=== PATIENT | female | born 1960 | race Caucasian/White ===

== ENCOUNTER → 2017-09-30 10:27 | Outpatient (CLI) | payer OTHER, SELFPAY ==
--- NOTE | 2017-09-30 | DI.ECHO.S_ITS ---
[facility]---------+ [facility] +---------+ : : [address] : : : : [id number] : : : : Phone: [phone]+ Echocardiogram Report + + :Name: JENNI ROSALES Study Date: 09/30/2017 Height: 64 in : :[facility] Weight: 220 lb : : Gender: Female BSA: 2.0 m2 : :: 1960 Age: 57 yrs BP: 142/80 mmHg: :Reason For Study: SOB : :Ordering Physician: Marshal : :Paliwal Performed By: Verna Soto : + + Interpretation Summary 1) Moderate concentric left ventricular hypertrophy with normal size, normal wall motion, and normal systolic function (EF 60-65%). 2) Normal right ventricular size and function. 3) Assessment of diastolic parameters suggests a pseudonormalization pattern, consistent with elevated filling pressures. 4) The right ventricular systolic pressure is estimated at 26 mmHg assuming a right atrial pressure of 3 mm Hg. 5) No significant valvular abnormalities. 6) The ascending aorta is mildly enlarged at 3.9cm. 7) Compared to the Echo done 09/10/2015, no significant change. Procedure: A two-dimensional transthoracic echocardiogram with color flow and Doppler was performed. The study quality was technically adequate. Comparison is made with the echocardiogram of 09/10/2015. The patient was in sinus bradycardia with heart rates between 52-62 bpm during the exam. Left Ventricle: The left ventricle is normal in size. There is moderate concentric left ventricular hypertrophy. There is no ventricular septal defect visualized. The ejection fraction is estimated to be 60-65%. There are no focal wall motion abnormalities. Assessment of diastolic parameters suggests a pseudonormalization pattern, consistent with elevated filling pressures. Right Ventricle: The right ventricle is normal in size and function. Atria: The left atrium is mildly dilated. Right atrial size is normal. There is no Doppler evidence for an interatrial shunt. Mitral Valve: The mitral valve is normal in structure and function. There is trace mitral regurgitation. Aortic Valve: The aortic valve is not well visualized. The aortic valve opens well. There is trace aortic regurgitation. Tricuspid Valve: The tricuspid valve is normal in structure and function. There is trace tricuspid regurgitation. The right ventricular systolic pressure is estimated at 26 mmHg assuming a right atrial pressure of 3 mm Hg. Pulmonic Valve: The pulmonic valve is not well visualized. There is a trace or physiologic amount of pulmonic regurgitation. Great Vessels: The aortic root is mildly dilated. The ascending aorta is mildly enlarged. The aortic arch is normal in size. The IVC is of normal diameter and collapses greater than 50% with a sniff. This suggests a low right atrial pressure of 3 mm Hg. Pericardium/ Pleura There is no pericardial effusion. MMode/2D Measurements & Calculations LVIDd: 4.4 cm LVOT diam: 2.0 cm LVIDs: 2.7 cm Ao root diam: 4.0 cm FS: 37.6 % Aortic Jxn: 3.1 cm EPSS: 0.30 cm asc Aorta Diam: 3.9 cm IVSd: 1.5 cm Ao Arch Diam (Prox Trans): 2.4 cm LVPWd: 1.3 cm LV davey. diameter/BSA (cm/m^2): 2.1 LV sys. diameter/BSA (cm/m^2): 1.3 LA A2 area: 24.4 cm2 RA long axis: 4.7 cm LA A4 area: 20.6 cm2 RA area: 14.4 cm2 LA length (vol): 5.2 cm RA vol: 37.9 ml LA vol: 81.0 ml RA : 18.6 ml/m2 LA vol index: 39.8 ml/m2 IVC diam: 1.5 cm RVD1 (basal): 3.4 cm TAPSE: 2.6 cm Doppler Measurements & Calculations Ao V2 max: 139.6 cm/sec LVOT Max Hubert: 113.6 cm/sec Ao V2 mean: 87.5 cm/sec LV V1 max P.2 mmHg Ao max P.8 mmHg LV V1 VTI: 27.1 cm Ao mean P.6 mmHg JOSE(I,D): 2.5 cm2 Ao V2 VTI: 32.3 cm JOSE(V,D): 2.4 cm2 sev ratio: 0.84 JOSE indexed to BSA (cm^2/m^2): 1.2 MV E max hubert: 91.8 cm/sec TR max hubert: 241.7 cm/sec MV A max hubert: 95.3 cm/sec TR max P.4 mmHg MV E/A: 0.96 PA V2 max: 77.7 cm/sec Med Peak E' Hubert: 6.4 cm/sec PA V2 mean: 57.9 cm/sec E/E' med: 14.3 PA mean P.4 mmHg Lat Peak E' Hubert: 7.6 cm/sec PA Accel Time: 0.18 sec E/E' lat: 12.1 E/e' average: 13.2 MV dec time: 0.22 sec MV P1/2t: 65.7 msec MV /2t max hubert: 91.9 cm/sec MVA(P1/2t): 3.4 cm2 Reading Physician:09:51 AM
[2017-09-30 13:39] LABS: BUN Creatinine Ratio 19.1 (6-22); Blood Urea Nitrogen 21 mg/dL (7-17); Calcium 9.4 mg/dL (8.4-10.2); Carbon Dioxide 26 mmol/L (22-32); Chloride 105 mmol/L (98-107); Estimated Glomerular Filt Rate 50.8 mL/min (>60); Glucose 82 mg/dL (70-100); HEMOLYSIS < 15 (0-50); Sodium 142 mmol/L (137-145)
== END ==
PROVIDERS: Family Provider Family Medicine; PCP Family Medicine; Visit Provider Internal Medicine Cardiovascular Disease
DX: R06.02 Shortness of breath (principal); I10 Essential (primary) hypertension; R60.9 Edema, unspecified
CPT/HCPCS: 36415; 80048; 93306

== ENCOUNTER → 2017-10-26 09:42 | Outpatient (CLI) | payer OTHER, SELFPAY ==
[2017-10-26 10:27] LABS: Add Manual Diff / Slide Review NO; Basophils Percent Auto 0.7 % (0-2); Eosinophils Percent Auto 3.5 % (2-4); Hematocrit 43.8 % (36-46); Hemoglobin 14.6 g/dL (12.0-16.0); Lymphocytes Percent Auto 21.7 % (25-40); Mean Corpuscular HGB Conc 33.2 % (30-36); Mean Corpuscular Hemoglobin 30.6 PG (26-34); Monocytes Percent Auto 7.9 % (3-14); Neutrophils Absolute Auto 6700 /uL (3000-5900); Neutrophils Percent Auto 66.2 % (50-75); Platelet Count 243 X10^3/uL (150-400); Red Blood Cell Count 4.76 X10^6/uL (4.0-5.2); Red Cell Distribution Width 15.6 % (11.6-14.8); White Blood Cell Count 10.2 X10^3/uL (4.5-11.0)
[2017-10-26 10:46] LABS: Hemoglobin A1C% w Est Avg Glu 5.6 % (4.0-6.0)
[2017-10-26 11:03] LABS: Creatinine Urine Random 191.3 mg/dL
[2017-10-26 11:05] LABS: Alanine Aminotransferase 32 IU/L (9-52); Albumin 4.4 g/dL (3.5-5.0); Albumin Globulin Ratio 1.3 (1.0-2.8); Alkaline Phosphatase 70 U/L (38-126); Aspartate Aminotransferase 27 IU/L (14-36); BUN Creatinine Ratio 19.4 (6-22); Bilirubin Total 0.3 mg/dL (0.2-1.3); Blood Urea Nitrogen 33 mg/dL (7-17); Calcium 9.7 mg/dL (8.4-10.2); Carbon Dioxide 29 mmol/L (22-32); Chloride 104 mmol/L (98-107); Cholesterol 157 mg/dL (140-199); Estimated Glomerular Filt Rate 30.8 mL/min (>60); Globulin 3.4 g/dL (1.7-4.1); Glucose 98 mg/dL (70-100); HDL Cholesterol 33 mg/dL (40-60); HEMOLYSIS < 15 (0-50); LDL Cholesterol Calculated 79 mg/dL (<100); Potassium 4.4 mmol/L (3.4-5.1); Sodium 145 mmol/L (137-145); Total Protein 7.8 g/dL (6.3-8.2); Triglycerides 226 mg/dL (35-150)
[2017-10-26 11:08] LABS: Microalbumi Creatinin Ratio Ur 5.7 ug/mg CR (<30); Microalbumin Urine Random 1.1 mg/dL (0-1.6)
[2017-10-26 11:33] LABS: TSH w/ Reflex to FT4 2.71 uIU/mL (0.47-4.68)
== END ==
PROVIDERS: Family Provider Family Medicine; PCP Family Medicine; Visit Provider Family Medicine
DX: I10 Essential (primary) hypertension (principal); E78.2 Mixed hyperlipidemia; E11.9 Type 2 diabetes mellitus without complications; Z79.4 Long term (current) use of insulin
CPT/HCPCS: 36415; 80053; 80061; 82043; 82570; 83036; 84443; 85025

== ENCOUNTER → 2017-11-26 12:29 | Outpatient (CLI) | payer OTHER, SELFPAY ==
[2017-11-26 14:09] LABS: BUN Creatinine Ratio 20.8 (6-22); Blood Urea Nitrogen 25 mg/dL (7-17); Calcium 9.6 mg/dL (8.4-10.2); Carbon Dioxide 30 mmol/L (22-32); Chloride 102 mmol/L (98-107); Glucose 113 mg/dL (70-100); HEMOLYSIS < 15 (0-50); Potassium 3.7 mmol/L (3.4-5.1); Sodium 142 mmol/L (137-145)
== END ==
PROVIDERS: Family Provider Family Medicine; PCP Family Medicine; Visit Provider Internal Medicine Cardiovascular Disease
DX: N28.9 Disorder of kidney and ureter, unspecified (principal)
CPT/HCPCS: 36415; 80048

== ENCOUNTER → 2018-02-14 11:16 | Outpatient (CLI) | payer OTHER, SELFPAY | PROVIDERS: Family Provider Family Medicine; PCP Family Medicine; Visit Provider Family Medicine | DX: E11.9 Type 2 diabetes mellitus without complications (principal); Z79.4 Long term (current) use of insulin; Z87.448 Personal history of other diseases of urinary system | CPT/HCPCS: 36415; 82565 ==

== ENCOUNTER → 2018-02-15 09:58 | Outpatient (CLI) | payer OTHER, SELFPAY ==
--- NOTE | 2018-02-15 09:59 | DI.MRI.S_ITS ---
PROCEDURE: MR HEAD/BRAIN WO/W CON INDICATIONS: slurring of speech TECHNIQUE: Noncontrast axial T1 spin echo, axial T2 fast spin echo, sagittal and axial FLAIR, coronal T2 fast spin echo, axial gradient echo, axial diffusion and ADC through the brain. After the administration of contrast, axial and coronal T1 spin echo with fat saturation through the brain. COMPARISON: [facility], CT, HEAD WITHOUT CONTRAST, 11/29/2008, 19:04. [facility], MR, STROKE PROTOCOL A, 12/25/2008, 19:47. FINDINGS: Image quality: Excellent. CSF spaces: Basal cisterns are patent. No extra-axial fluid collections. Ventricles are normal in size and shape. Brain: No midline shift. No intracranial bleeds or masses. No abnormal intracranial enhancement. There is cerebral volume loss for age. There is periventricular and deep white matter T2 hyperintense foci seen, which have progressed compared to 2008. The brainstem appears normal. Diffusion-weighted images demonstrate no acute ischemic insults. No chronic ischemic insults. Normal intravascular flow voids are present. Skull and face: Calvarial marrow is normal in signal. Orbits appear normal. Sinuses: Sinuses and mastoids appear clear. IMPRESSION: No findings of acute or subacute infarction can be seen. White matter lesions are seen, which are attributed to chronic small vessel ischemic change in a patient of this age. The burden of white matter abnormality is more prominent than would normally be expected in a patient of this age. Dictated by: Joel Lanza M.D. on 02/15/2018 at 10:24 Approved by: Joel Lanza M.D. on 02/15/2018 at 10:27
== END ==
PROVIDERS: Family Provider Family Medicine; PCP Family Medicine; Visit Provider Family Medicine
DX: R47.81 Slurred speech (principal)
CPT/HCPCS: 70553

== ENCOUNTER 2018-09-09 16:09 | Emergency (ER) | payer MEDICARE, OTHER, SELFPAY ==
[2018-09-09 16:16] VITALS: BP 186/103; PULSE 57; RESP 20; TEMP 36.2; O2SAT 98
--- NOTE | 2018-09-09 17:30 | DI.US.S_ITS ---
PROCEDURE: US PERIPH VENOUS LOW EXTREM LT INDICATIONS: LT LEG PAIN POST FLIGHT TECHNIQUE: Real-time imaging, as well as color and pulse Doppler interrogation, were performed of the lower extremity deep veins from the inguinal ligament to the popliteal fossa. COMPARISON: None. FINDINGS: The common femoral, femoral and popliteal veins are normally compressible, and free of intraluminal thrombus. Color and pulse Doppler demonstrate normal phasic intraluminal flow. There is normal augmentation response to distal compression maneuver. IMPRESSION: No evidence of deep vein thrombosis involving the left lower extremity. Dictated by: Keya Marino MD, PhD on 09/09/2018 at 19:40 Approved by: Keya Marino MD, PhD on 09/09/2018 at 19:40
--- NOTE | 2018-09-09 17:30 | DI.RAD.S_ITS ---
PROCEDURE: XR KNEE LT 3V INDICATIONS: knee pain TECHNIQUE: 3 views of the knee were acquired. COMPARISON: None. FINDINGS: Bones: No fractures or dislocations. No suspicious bony lesions. Mild tricompartmental osteoarthritis. Soft tissues: Small joint effusion. No suspicious soft tissue calcifications. IMPRESSION: 1. No fracture. No acute osseous lesion. If there are persistent symptoms or clinical suspicion for pathology, then repeat radiographs or advanced imaging (CT, MRI or bone scan) should be considered for further evaluation. 2. Small nonspecific joint effusion. Dictated by: Keya Marino MD, PhD on 09/09/2018 at 17:58 Approved by: Keya Marino MD, PhD on 09/09/2018 at 18:00
[2018-09-09 19:07] VITALS: BP 163/99; PULSE 54; RESP 15; O2SAT 100
--- NOTE | 2018-09-09 19:52 | ED.EXTPRO ---
HPI - Extremity Problem <Michelle GuidoMICHEAL-BC - Last Filed: 09/09/18 20:39> General Chief complaint: Extremity Problem,Nontraumatic Stated complaint: possible blood clot,sent by walk in Time Seen by Provider: 09/09/18 17:20 Source: patient Mode of arrival: ambulatory Limitations: no limitations History of Present Illness HPI Narrative: The patient is a 58-year-old female with history of PE and DVT who presents with chief complaint of left leg pain. She recently flew back from [place]. She has a history of DVT and PE. She complains of knee pain and swelling. She has been using [id number] medications as needed and able for pain. She denies any numbness or tingling. She denies any known orthopedic injury. She denies any rashes or abrasions to the area. Related Data Home Medications Medication Instructions Recorded Confirmed ascorbic acid (vitamin C) 1,000 mg 1 gram PO DAILY tab 10/29/17 09/09/18 tablet aspirin 81 mg tablet,delayed 81 mg PO DAILY 10/29/17 09/09/18 release cholecalciferol (vitamin D3) 5,000 5,000 unit PO DAILY 10/29/17 09/09/18 unit capsule Previous Rx's Medication Instructions Recorded Glucose: Home Monitoring Kit kit IJ BID #1 04/30/17 Test Strips - Freestyle str INJ BID #200 06/14/17 atorvastatin 40 mg PO HS #90 tab 06/21/17 carvedilol [Coreg] 37.5 mg PO BID #270 tab 06/21/17 chlorthalidone 25 mg PO QDAY #90 tab 06/21/17 furosemide 40 mg PO QDAYP PRN #90 tab 06/21/17 losartan 100 mg tablet 100 mg PO QDAY #90 tab 10/29/17 omeprazole 20 mg capsule,delayed 20 mg PO BID #180 cap 12/14/17 release trazodone 50 mg PO SEE INSTRUCTIONS #270 tab 01/17/18 blood sugar diagnostic strips #300 each 02/07/18 clobetasol 0.05 % topical cream 1 applictn TOP BID #45 gram 03/03/18 Syringes: Ultra Fine Insulin #90 each 04/13/18 Syringe w/Needle insulin glargine (U- 100) 100 80 unit SUBCUT BEDTIME #3 vial 04/13/18 unit/mL subcutaneous solution ketoconazole 2 % topical cream See Rx Instructions TOP BID #30 05/24/18 gram spironolactone 50 mg tablet 50 mg PO BID #180 tab 05/24/18 triamcinolone acetonide 0.1 % See Rx Instructions TOP BID #30 05/24/18 topical cream gram citalopram 20 mg tablet 20 mg PO QDAY #90 tab 07/26/18 acetaminophen-codeine 1 tab PO Q4-6H PRN #7 tab 09/09/18 testosterone cypionate 100 mg/mL 100 mg IM Q4W #1 ml 09/09/18 intramuscular oil Allergies Allergy/AdvReac Type Severity Reaction Status Date / Time No Known Drug Allergies Allergy Verified 09/09/18 14:57 Review of Systems <QUENTIN Davis - Last Filed: 09/09/18 20:39> Review of Systems GENERAL: Denies chills, fatigue, malaise, fever, sweats. HEENT: Denies sinus pain, ear pain, sore throat, difficulty swallowing, dizziness. RESPIRATORY: Denies dyspnea, cough, wheezing, hemoptysis, sputum. CARDIOVASCULAR: Denies chest pain, palpitations, orthopnea, edema, GASTROINTESTINAL: Denies nausea, vomiting, abdominal pain, diarrhea, constipation, melena. : Denies dysuria, frequency, incontinence, hematuria, urinary retention. MUSCULOSKELETAL: See HPI SKIN: Denies rash, skin lesions, or other NEUROLOGIC: Denies weakness, headache, numbness, change in speech, confusion, seizures, incoordination. PSYCHIATRIC: No concerning psychosocial issues. 12 point review of systems is negative except for those stated above PFSH <QUENTIN Davis - Last Filed: 09/09/18 20:39> Medical History Osteoarthritis, hand, primary localized (Chronic) Diabetes mellitus type 2, insulin dependent (Chronic) Essential hypertension (Chronic 03/25/11) Mixed hyperlipidemia (Chronic 03/25/11) Chronic major depressive disorder (Chronic 03/25/11) Diastolic heart failure (Chronic 03/25/11) Morbid obesity (Chronic 10/22/15) Nonalcoholic fatty liver disease (Chronic 03/18/16) Anxiety (Chronic) Cardiac arrhythmia (Chronic) Sleep apnea (Chronic) Surgical History Anesthesia (Resolved) History of foot surgery (Resolved) History of knee surgery (Resolved) History of neck surgery (Resolved) History of removal of cyst (Resolved) Tumor (Resolved) History of carpal tunnel repair Status post appendectomy Status post appendectomy Status post cholecystectomy Status post hysterectomy Status post laparoscopic cholecystectomy Status post tubal ligation Social History marital status: Smoking Status: Never smoker alcohol intake: never substance use type: does not use Social History marital status: Smoking Status: Never smoker alcohol intake: never substance use type: does not use Exam <QUENTIN Davis - Last Filed: 09/09/18 20:39> Narrative Exam Narrative: GENERAL: This is a well-nourished, well-developed patient, no acute distress HEAD: Atraumatic. Normocephalic. No temporal or scalp tenderness. EYES: Pupils equal round and reactive. Extraocular motions intact. No scleral icterus. No injection or drainage. ENT: Nose without bleeding, purulent drainage or septal hematoma. Throat without erythema, tonsillar hypertrophy or exudate. Uvula midline. Airway patent. NECK: Trachea midline. No JVD or lymphadenopathy. Supple, nontender, no meningeal signs. CARDIOVASCULAR: Regular rate and rhythm without murmurs, gallops, or rubs. RESPIRATORY: Clear to auscultation. Breath sounds equal bilaterally. No wheezes, rales, or rhonchi. No cough. No increased respiratory effort GASTROINTESTINAL: Abdomen soft, non-tender, nondistended. No hepato-splenomegaly, or palpable masses. No guarding. EXTREMITIES: Generalized pain to palpation left knee. Reduced flexion left knee. Positive pedal pulses. No pedal edema noted left foot. BACK: Nontender without deformity or crepitance. No flank tenderness. NEURO: AOx3. SKIN: No rash erythema ecchymosis noted left knee. Initial Vital Signs Initial Vital Signs: Vital Signs Temperature 97.1 F L 09/09/18 16:16 Pulse Rate 57 L 09/09/18 16:16 Respiratory Rate 20 09/09/18 16:16 Blood Pressure 186/103 H 09/09/18 16:16 Pulse Oximetry 98 05/17/19 16:16 <Chris Hayward DO - Last Filed: 09/09/18 23:00> Initial Vital Signs Initial Vital Signs: Vital Signs Temperature 97.1 F L 09/09/18 16:16 Pulse Rate 57 L 09/09/18 16:16 Respiratory Rate 20 09/09/18 16:16 Blood Pressure 186/103 H 09/09/18 16:16 Pulse Oximetry 98 09/09/18 16:16 Course <QUENTIN Davis - Last Filed: 09/09/18 20:39> Orders Ordered: ED Orders 09/09/18 17:30 US periph venous low extrem lt Stat XR knee LT 3V Stat Vital Signs - 8 hr 09/09/18 16:16 09/09/18 19:07 Temperature 97.1 F L Pulse Rate 57 L 54 L Respiratory Rate 20 15 Blood Pressure 186/103 H Blood Pressure [Right Arm] 163/99 H Pulse Oximetry 98 100 <Chris Hayward DO - Last Filed: 09/09/18 23:00> Orders Ordered: ED Orders 09/09/18 17:30 perip venous low extrem lt Stat XR knee LT 3V Stat Vital Signs - 8 hr 09/09/18 16:16 09/09/18 19:07 Temperature 97.1 F L Pulse Rate 57 L 54 L Respiratory Rate 20 15 Blood Pressure 186/103 H Blood Pressure [Right Arm] 163/99 H Pulse Oximetry 98 100 MDM - Extremity (Nontraumatic) <QUENTIN Davis - Last Filed: 09/09/18 20:39> Imaging Data knee x-ray: Radiologist's impression: [place] [address] XRay Report Signed Patient: Mehreen Hewitt [facility]#: [id number] : 9Acct:[id number] Age/Sex: 58 / FDate of Service: 09/09/18 Loc: ED Accession Number: [id number] Procedure: XR knee LT 3V Ordering Provider: Michelle Guido PROCEDURE: XR KNEE LT 3V INDICATIONS: knee pain TECHNIQUE: 3 views of the knee were acquired. COMPARISON: None. FINDINGS: Bones: No fractures or dislocations. No suspicious bony lesions. Mild tricompartmental osteoarthritis. Soft tissues: Small joint effusion. No suspicious soft tissue calcifications. IMPRESSION: 1. No fracture. No acute osseous lesion. If there are persistent symptoms or clinical suspicion for pathology, then repeat radiographs or advanced imaging (CT, MRI or bone scan) should be considered for further evaluation. 2. Small nonspecific joint effusion. Dictated by: Keya Marino MD, PhD on 09/09/2018 at 17:58 Approved by: Keya Marino MD, PhD on 09/09/2018 at 18:00 Venous US: Radiologist's impression: [address] [address] Ultrasound Report Signed Patient: Mehreen Hewitt [facility]#: [id number] : 9Acct:[id number] Age/Sex: 58 / FDate of Service: 09/09/18 Loc: ED Accession Number: [id number] Procedure: US periph venous low extrem lt Ordering Provider: Michelle Guido PROCEDURE: US PERIPH VENOUS LOW EXTREM LT INDICATIONS: LT LEG PAIN POST FLIGHT TECHNIQUE: Real-time imaging, as well as color and pulse Doppler interrogation, were performed of the lower extremity deep veins from the inguinal ligament to the popliteal fossa. COMPARISON: None. FINDINGS: The common femoral, femoral and popliteal veins are normally compressible, and free of intraluminal thrombus. Color and pulse Doppler demonstrate normal phasic intraluminal flow. There is normal augmentation response to distal compression maneuver. IMPRESSION: No evidence of deep vein thrombosis involving the left lower extremity. Dictated by: Keya Marino MD, PhD on 09/09/2018 at 19:40 Approved by: Keya Marino MD, PhD on 09/09/2018 at 19:40 [facility] Narrative Medical decision making narrative: The patient is a 58-year-old female presents with concern for DVT in her left leg. She complains of knee pain. She has a small effusion on the left knee x-ray. She has no DVT on ultrasound. I discussed at length rest ice compression elevation as well as over the counter pain medications as needed and able. I discussed follow-up with primary care provider in the next few days. We did discuss the possibility of CHF, but she does not have any shortness of breath and states that this pain and swelling is different than her CHF exacerbation. I offered her lab work, which she stated she did not feel like it needed to be done. Discussed return precautions the emergency department including chest pain shortness of breath other acute concerns. Patient has no questions or concerns upon discharge. Discharge Plan Departure Patient Disposition: Home Clinical Impression: Acute pain of left knee Discharge Date/Time: 09/09/18 20:13 Interventions: ED Discharge Assessment Last Done: 09/09/18 20:12 Instructions: How To Perform RICE (Rest, Ice, Compress, Elevate), DI for Knee Pain Activity Restrictions/Additional Instructions: Your ultrasound for DVT came back negative. Please follow-up with primary care provider. Please use rest ice compression elevation as needed for her knee. Please continue [id number] pain medications as needed and able. I have given you a small prescription of Tylenol 3 to help with her pain. Come back to the emergency department for any acute concerns such as chest pain shortness of breath or concern for another clot, etc. Come back to the emergency department if needed. Please follow up with primary care provider. Prescriptions: New acetaminophen-codeine 300-15 mg tablet 1 tab PO Q4-6H PRN (Reason: pain) Qty: 7 RF: 0 No Action testosterone cypionate 100 mg/mL oil 100 mg IM Q4W Qty: 1 RF: 2 Glucose: Home Monitoring Kit IJ BID Qty: 1 RF: 0 Test Strips - Freestyle INJ BID Qty: 200 RF: 3 furosemide 40 MG tablet 40 mg PO QDAYP PRNQty: 90 RF: 3 atorvastatin 40 MG tablet 40 mg PO HS Qty: 90 RF: 3 carvedilol [Coreg] 25 MG tablet 37.5 mg PO BID Qty: 270 RF: 3 chlorthalidone 25 MG tablet 25 mg PO QDAY Qty: 90 RF: 3 omeprazole 20 mg capsule,delayed release(DR/EC) 20 mg PO BID Qty: 180 RF: 3 trazodone 50 mg tablet 50 mg PO SEE INSTRUCTIONS Qty: 270 RF: 3 blood sugar diagnostic [Blood Glucose Test] strip .ROUTE .MEDSUPPLY Qty: 300 RF: 3 clobetasol 0.05 % cream 1 applictn TOP BID Qty: 45 RF: 1 insulin glargine [Lantus U-100 Insulin] 100 unit/mL solution 80 unit SUBCUT BEDTIME Qty: 3 RF: 3 Syringes: Ultra Fine Insulin Syringe w/Needle See Rx Instructions .Route .MEDSUPPLY Qty: 90 RF: 3 citalopram 20 mg tablet 20 mg PO QDAY Qty: 90 RF: 2 aspirin [Adult Aspirin Regimen] 81 mg tablet,delayed release (DR/EC) 81 mg PO DAILY RF: 0 cholecalciferol (vitamin D3) 5,000 unit capsule 5,000 unit PO DAILY RF: 0 ascorbic acid (vitamin C) 1,000 mg tablet 1 gram PO DAILY RF: 0 losartan [Cozaar] 100 mg tablet 100 mg PO QDAY Qty: 90 RF: 3 triamcinolone acetonide 0.1 % cream See Rx Instructions TOP BID Qty: 30 RF: 0 spironolactone 50 mg tablet 50 mg PO BID Qty: 180 RF: 3 ketoconazole 2 % cream See Rx Instructions TOP BID Qty: 30 RF: 0 Referrals: Himanshu Rivera MD [Primary Care Provider] - <Chris Hayward DO - Last Filed: 09/09/18 23:00> Cosign ED Attending Jazature Attestation: I was available for consultation during this patient's emergency department encounter
--- NOTE | 2018-09-09 19:59 | ED_ITS ---
HPI - Extremity Problem <Michelle GuidoMICHEAL-BC - Last Filed: 09/09/18 20:39> General Chief complaint: Extremity Problem,Nontraumatic Stated complaint: possible blood clot,sent by walk in Time Seen by Provider: 09/09/18 17:20 Source: patient Mode of arrival: ambulatory Limitations: no limitations History of Present Illness HPI Narrative: The patient is a 58-year-old female with history of PE and DVT who presents with chief complaint of left leg pain. She recently flew back from [place]. She has a history of DVT and PE. She complains of knee pain and swelling. She has been using [id number] medications as needed and able for pain. She denies any numbness or tingling. She denies any known orthopedic injury. She denies any rashes or abrasions to the area. Related Data Home Medications Medication Instructions Recorded Confirmed ascorbic acid (vitamin C) 1,000 mg 1 gram PO DAILY tab 10/29/17 09/09/18 tablet aspirin 81 mg tablet,delayed 81 mg PO DAILY 10/29/17 09/09/18 release cholecalciferol (vitamin D3) 5,000 5,000 unit PO DAILY 10/29/17 09/09/18 unit capsule Previous Rx's Medication Instructions Recorded Glucose: Home Monitoring Kit kit IJ BID #1 04/30/17 Test Strips - Freestyle str INJ BID #200 06/14/17 atorvastatin 40 mg PO HS #90 tab 06/21/17 carvedilol [Coreg] 37.5 mg PO BID #270 tab 06/21/17 chlorthalidone 25 mg PO QDAY #90 tab 06/21/17 furosemide 40 mg PO QDAYP PRN #90 tab 06/21/17 losartan 100 mg tablet 100 mg PO QDAY #90 tab 10/29/17 omeprazole 20 mg capsule,delayed 20 mg PO BID #180 cap 12/14/17 release trazodone 50 mg PO SEE INSTRUCTIONS #270 tab 01/17/18 blood sugar diagnostic strips #300 each 02/07/18 clobetasol 0.05 % topical cream 1 applictn TOP BID #45 gram 03/03/18 Syringes: Ultra Fine Insulin #90 each 04/13/18 Syringe w/Needle insulin glargine (U- 100) 100 80 unit SUBCUT BEDTIME #3 vial 04/13/18 unit/mL subcutaneous solution ketoconazole 2 % topical cream See Rx Instructions TOP BID #30 05/24/18 gram spironolactone 50 mg tablet 50 mg PO BID #180 tab 05/24/18 triamcinolone acetonide 0.1 % See Rx Instructions TOP BID #30 05/24/18 topical cream gram citalopram 20 mg tablet 20 mg PO QDAY #90 tab 07/26/18 acetaminophen-codeine 1 tab PO Q4-6H PRN #7 tab 09/09/18 testosterone cypionate 100 mg/mL 100 mg IM Q4W #1 ml 09/09/18 intramuscular oil Allergies Allergy/AdvReac Type Severity Reaction Status Date / Time No Known Drug Allergies Allergy Verified 09/09/18 14:57 Review of Systems <QUENTIN Davis - Last Filed: 09/09/18 20:39> Review of Systems GENERAL: Denies chills, fatigue, malaise, fever, sweats. HEENT: Denies sinus pain, ear pain, sore throat, difficulty swallowing, dizziness. RESPIRATORY: Denies dyspnea, cough, wheezing, hemoptysis, sputum. CARDIOVASCULAR: Denies chest pain, palpitations, orthopnea, edema, GASTROINTESTINAL: Denies nausea, vomiting, abdominal pain, diarrhea, constipation, melena. : Denies dysuria, frequency, incontinence, hematuria, urinary retention. MUSCULOSKELETAL: See HPI SKIN: Denies rash, skin lesions, or other NEUROLOGIC: Denies weakness, headache, numbness, change in speech, confusion, seizures, incoordination. PSYCHIATRIC: No concerning psychosocial issues. 12 point review of systems is negative except for those stated above PFSH <QUENTIN Davis - Last Filed: 09/09/18 20:39> Medical History Osteoarthritis, hand, primary localized (Chronic) Diabetes mellitus type 2, insulin dependent (Chronic) Essential hypertension (Chronic 03/25/11) Mixed hyperlipidemia (Chronic 03/25/11) Chronic major depressive disorder (Chronic 03/25/11) Diastolic heart failure (Chronic 03/25/11) Morbid obesity (Chronic 10/22/15) Nonalcoholic fatty liver disease (Chronic 03/18/16) Anxiety (Chronic) Cardiac arrhythmia (Chronic) Sleep apnea (Chronic) Surgical History Anesthesia (Resolved) History of foot surgery (Resolved) History of knee surgery (Resolved) History of neck surgery (Resolved) History of removal of cyst (Resolved) Tumor (Resolved) History of carpal tunnel repair Status post appendectomy Status post appendectomy Status post cholecystectomy Status post hysterectomy Status post laparoscopic cholecystectomy Status post tubal ligation Social History marital status: Smoking Status: Never smoker alcohol intake: never substance use type: does not use Social History marital status: Smoking Status: Never smoker alcohol intake: never substance use type: does not use Exam <QUENTIN Davis - Last Filed: 09/09/18 20:39> Narrative Exam Narrative: GENERAL: This is a well-nourished, well-developed patient, no acute distress HEAD: Atraumatic. Normocephalic. No temporal or scalp tenderness. EYES: Pupils equal round and reactive. Extraocular motions intact. No scleral icterus. No injection or drainage. ENT: Nose without bleeding, purulent drainage or septal hematoma. Throat without erythema, tonsillar hypertrophy or exudate. Uvula midline. Airway patent. NECK: Trachea midline. No JVD or lymphadenopathy. Supple, nontender, no meningeal signs. CARDIOVASCULAR: Regular rate and rhythm without murmurs, gallops, or rubs. RESPIRATORY: Clear to auscultation. Breath sounds equal bilaterally. No wheezes, rales, or rhonchi. No cough. No increased respiratory effort GASTROINTESTINAL: Abdomen soft, non-tender, nondistended. No hepato- splenomegaly, or palpable masses. No guarding. EXTREMITIES: Generalized pain to palpation left knee. Reduced flexion left knee. Positive pedal pulses. No pedal edema noted left foot. BACK: Nontender without deformity or crepitance. No flank tenderness. NEURO: AOx3. SKIN: No rash erythema ecchymosis noted left knee. Initial Vital Signs Initial Vital Signs: Vital Signs Temperature 97.1 F L 09/09/18 16:16 Pulse Rate 57 L 09/09/18 16:16 Respiratory Rate 20 09/09/18 16:16 Blood Pressure 186/103 H 09/09/18 16:16 Pulse Oximetry 98 05/17/19 16:16 <Chris Hayward DO - Last Filed: 09/09/18 23:00> Initial Vital Signs Initial Vital Signs: Vital Signs Temperature 97.1 F L 09/09/18 16:16 Pulse Rate 57 L 09/09/18 16:16 Respiratory Rate 20 09/09/18 16:16 Blood Pressure 186/103 H 09/09/18 16:16 Pulse Oximetry 98 09/09/18 16:16 Course <QUENTIN Davis - Last Filed: 09/09/18 20:39> Orders Ordered: ED Orders 09/09/18 17:30 US periph venous low extrem lt Stat XR knee LT 3V Stat Vital Signs - 8 hr 09/09/18 16:16 09/09/18 19:07 Temperature 97.1 F L Pulse Rate 57 L 54 L Respiratory Rate 20 15 Blood Pressure 186/103 H Blood Pressure [Right Arm] 163/99 H Pulse Oximetry 98 100 <Chris Hayward DO - Last Filed: 09/09/18 23:00> Orders Ordered: ED Orders 09/09/18 17:30 perip venous low extrem lt Stat XR knee LT 3V Stat Vital Signs - 8 hr 09/09/18 16:16 09/09/18 19:07 Temperature 97.1 F L Pulse Rate 57 L 54 L Respiratory Rate 20 15 Blood Pressure 186/103 H Blood Pressure [Right Arm] 163/99 H Pulse Oximetry 98 100 MDM - Extremity (Nontraumatic) <QUENTIN Davis - Last Filed: 09/09/18 20:39> Imaging Data knee x-ray: Radiologist's impression: [place] [address] XRay Report Signed Patient: Mehreen Hewitt [facility]#: [id number] : 9Acct:[id number] Age/Sex: 58 / FDate of Service: 09/09/18 Loc: ED Accession Number: [id number] Procedure: XR knee LT 3V Ordering Provider: Michelle Guido PROCEDURE: XR KNEE LT 3V INDICATIONS: knee pain TECHNIQUE: 3 views of the knee were acquired. COMPARISON: None. FINDINGS: Bones: No fractures or dislocations. No suspicious bony lesions. Mild tricompartmental osteoarthritis. Soft tissues: Small joint effusion. No suspicious soft tissue calcifications. IMPRESSION: 1. No fracture. No acute osseous lesion. If there are persistent symptoms or clinical suspicion for pathology, then repeat radiographs or advanced imaging (CT, MRI or bone scan) should be considered for further evaluation. 2. Small nonspecific joint effusion. Dictated by: Keya Marino MD, PhD on 09/09/2018 at 17:58 Approved by: Keya Marino MD, PhD on 09/09/2018 at 18:00 Venous US: Radiologist's impression: [address] [address] Ultrasound Report Signed Patient: Mehreen Hewitt [facility]#: [id number] : 9Acct:[id number] Age/Sex: 58 / FDate of Service: 09/09/18 Loc: ED Accession Number: [id number] Procedure: US periph venous low extrem lt Ordering Provider: Michelle Guido PROCEDURE: US PERIPH VENOUS LOW EXTREM LT INDICATIONS: LT LEG PAIN POST FLIGHT TECHNIQUE: Real-time imaging, as well as color and pulse Doppler interrogation, were performed of the lower extremity deep veins from the inguinal ligament to the popliteal fossa. COMPARISON: None. FINDINGS: The common femoral, femoral and popliteal veins are normally compressible, and free of intraluminal thrombus. Color and pulse Doppler demonstrate normal phasic intraluminal flow. There is normal augmentation response to distal compression maneuver. IMPRESSION: No evidence of deep vein thrombosis involving the left lower extremity. Dictated by: Keya Marino MD, PhD on 09/09/2018 at 19:40 Approved by: Keya Marino MD, PhD on 09/09/2018 at 19:40 [facility] Narrative Medical decision making narrative: The patient is a 58-year-old female presents with concern for DVT in her left leg. She complains of knee pain. She has a small effusion on the left knee x-ray. She has no DVT on ultrasound. I discussed at length rest ice compression elevation as well as over the counter pain medications as needed and able. I discussed follow-up with primary care provider in the next few days. We did discuss the possibility of CHF, but she does not have any shortness of breath and states that this pain and swelling is different than her CHF exacerbation. I offered her lab work, which she stated she did not feel like it needed to be done. Discussed return precautions the emergency department including chest pain shortness of breath other acute concerns. Patient has no questions or concerns upon discharge. Discharge Plan Departure Patient Disposition: Home Clinical Impression: Acute pain of left knee Discharge Date/Time: 09/09/18 20:13 Interventions: ED Discharge Assessment Last Done: 09/09/18 20:12 Instructions: How To Perform RICE (Rest, Ice, Compress, Elevate), DI for Knee Pain Activity Restrictions/Additional Instructions: Your ultrasound for DVT came back negative. Please follow-up with primary care provider. Please use rest ice compression elevation as needed for her knee. Please continue [id number] pain medications as needed and able. I have given you a small prescription of Tylenol 3 to help with her pain. Come back to the emergency department for any acute concerns such as chest pain shortness of breath or concern for another clot, etc. Come back to the emergency department if needed. Please follow up with primary care provider. Prescriptions: New acetaminophen-codeine 300-15 mg tablet 1 tab PO Q4-6H PRN (Reason: pain) Qty: 7 RF: 0 No Action testosterone cypionate 100 mg/mL oil 100 mg IM Q4W Qty: 1 RF: 2 Glucose: Home Monitoring Kit IJ BID Qty: 1 RF: 0 Test Strips - Freestyle INJ BID Qty: 200 RF: 3 furosemide 40 MG tablet 40 mg PO QDAYP PRNQty: 90 RF: 3 atorvastatin 40 MG tablet 40 mg PO HS Qty: 90 RF: 3 carvedilol [Coreg] 25 MG tablet 37.5 mg PO BID Qty: 270 RF: 3 chlorthalidone 25 MG tablet 25 mg PO QDAY Qty: 90 RF: 3 omeprazole 20 mg capsule,delayed release(DR/EC) 20 mg PO BID Qty: 180 RF: 3 trazodone 50 mg tablet 50 mg PO SEE INSTRUCTIONS Qty: 270 RF: 3 blood sugar diagnostic [Blood Glucose Test] strip .ROUTE .MEDSUPPLY Qty: 300 RF: 3 clobetasol 0.05 % cream 1 applictn TOP BID Qty: 45 RF: 1 insulin glargine [Lantus U-100 Insulin] 100 unit/mL solution 80 unit SUBCUT BEDTIME Qty: 3 RF: 3 Syringes: Ultra Fine Insulin Syringe w/Needle See Rx Instructions .Route .MEDSUPPLY Qty: 90 RF: 3 citalopram 20 mg tablet 20 mg PO QDAY Qty: 90 RF: 2 aspirin [Adult Aspirin Regimen] 81 mg tablet,delayed release (DR/EC) 81 mg PO DAILY RF: 0 cholecalciferol (vitamin D3) 5,000 unit capsule 5,000 unit PO DAILY RF: 0 ascorbic acid (vitamin C) 1,000 mg tablet 1 gram PO DAILY RF: 0 losartan [Cozaar] 100 mg tablet 100 mg PO QDAY Qty: 90 RF: 3 triamcinolone acetonide 0.1 % cream See Rx Instructions TOP BID Qty: 30 RF: 0 spironolactone 50 mg tablet 50 mg PO BID Qty: 180 RF: 3 ketoconazole 2 % cream See Rx Instructions TOP BID Qty: 30 RF: 0 Referrals: Himanshu Rivera MD [Primary Care Provider] - <Chris Hawyard DO - Last Filed: 09/09/18 23:00> Cosign ED Attending aJzature Attestation: I was available for consultation during this patient's emergency department encounter
== END 2018-09-09 20:13 | disposition home or self-care (01) ==
PROVIDERS: Emergency Provider Nurse Practitioner Family; Family Provider Family Medicine; PCP Family Medicine
DX: M25.562 Pain in left knee (principal); R60.9 Edema, unspecified; Z86.711 Personal history of pulmonary embolism; Z86.718 Personal history of other venous thrombosis and embolism
CPT/HCPCS: 73562; 93971; 99283

== ENCOUNTER → 2018-09-21 13:59 | Outpatient (CLI) | payer MEDICARE, OTHER, SELFPAY ==
[2018-09-21 14:35] LABS: Hematocrit 46.9 % (36-46); Hemoglobin 15.5 g/dL (12.0-16.0); Mean Corpuscular Hemoglobin 30.7 PG (26-34); Mean Corpuscular Volume 93.3 fL (80-100); Platelet Count 260 X10^3/uL (150-400); Red Blood Cell Count 5.03 X10^6/uL (4.0-5.2); Red Cell Distribution Width 14.7 % (11.6-14.8); White Blood Cell Count 9.6 X10^3/uL (4.5-11.0)
[2018-09-21 14:44] LABS: Hemoglobin A1C% w Est Avg Glu 5.3 % (4.0-6.0)
[2018-09-21 15:45] LABS: Creatinine Urine Random 132.6 mg/dL
[2018-09-21 15:48] LABS: BUN Creatinine Ratio 16.7 (6-22); Blood Urea Nitrogen 20 mg/dL (7-17); Calcium 10.3 mg/dL (8.4-10.2); Carbon Dioxide 28 mmol/L (22-32); Chloride 103 mmol/L (98-107); Estimated Glomerular Filt Rate 45.8 mL/min (>60); Glucose 88 mg/dL (80-110); HEMOLYSIS < 15 (0-50); Potassium 4.4 mmol/L (3.4-5.1); Sodium 141 mmol/L (137-145)
[2018-09-21 15:50] LABS: Microalbumi Creatinin Ratio Ur 13.5 ug/mg CR (<30); Microalbumin Urine Random 1.8 mg/dL (0-1.6)
[2018-09-21 17:10] LABS: Neutrophils Absolute Manual 6240 /uL (3000-5900); Total Cells Counted 100
[2018-09-21 17:11] LABS: RBC Morphology Normal Morphology
== END ==
PROVIDERS: Family Provider Family Medicine; PCP Family Medicine; Visit Provider Family Medicine
DX: E11.9 Type 2 diabetes mellitus without complications (principal); I10 Essential (primary) hypertension; Z79.4 Long term (current) use of insulin
CPT/HCPCS: 36415; 80048; 82043; 82570; 83036; 85025

== ENCOUNTER → 2018-10-31 09:20 | Outpatient (CLI) | payer MEDICARE, OTHER, SELFPAY ==
--- NOTE | 2018-10-31 | DI.MG.S_ITS ---
BILATERAL DIGITAL SCREENING MAMMOGRAM 3D/2D WITH CAD: 10/31/2018 CLINICAL: Routine screening. Family history of breast cancer. Comparison is made to exams dated: 08/14/2017 mammogram, 07/29/2016 mammogram, and 07/29/2015 mammogram - [facility]. There are scattered fibroglandular elements in both breasts. Current study was also evaluated with a Computer Aided Detection (CAD) system. No significant masses, calcifications, or other findings are seen in either breast. There has been no significant interval change. IMPRESSION: NEGATIVE There is no mammographic evidence of malignancy. A 1 year screening mammogram is recommended. This exam was interpreted at Station ID: [id number]. NOTE: For mammograms, a report in lay terms will be sent to the patient. Approximately 15% of breast malignancies will not be visualized mammographically. In the management of a palpable breast mass, a negative mammogram must not discourage biopsy of a clinically suspicious lesion. Electronically Signed By: Ismael cole/mirian:10/31/2018 12:07:08 letter sent: Normal Exam ACR BI-RADS Category 1: Negative [id number]
== END ==
PROVIDERS: PCP Family Medicine
DX: Z12.31 Encounter for screening mammogram for malignant neoplasm of breast (principal); Z80.3 Family history of malignant neoplasm of breast
CPT/HCPCS: 77063; 77067

== ENCOUNTER → 2019-03-07 15:51 | Outpatient (CLI) | payer MEDICARE, OTHER, SELFPAY ==
--- NOTE | 2019-03-07 | DI.MRI.S_ITS ---
PROCEDURE: MR KNEE LT WO CON INDICATIONS: Pain in left knee TECHNIQUE: Noncontrast sagittal PD fast spin echo and T2 fast spin echo with fat saturation, sagittal 3-D FLASH with fat saturation; coronal T1 spin echo and PD fast spin echo with fat saturation, and axial PD fast spin echo with fat saturation through the knee. COMPARISON: None. FINDINGS: Image quality: Diagnostic. Bones and joint: There is no acute fracture or dislocation. No suspicious osseous lesions are evident. There is a moderate size knee joint effusion with a small amount of fluid extending into a very small Farooq's cyst. Moderate degenerative changes of the knee are present. There is prominent medial joint space narrowing with extensive underlying chondromalacia. Heterogeneity of the hyaline articular cartilage within the lateral tibiofemoral compartment is present with probable areas of cartilaginous fissuring. Small to moderate-sized defects of the hyaline articular cartilage are noted within the patellofemoral compartment, best appreciated along the lateral patellar facet with associated degenerative/reactive marrow changes. Developing marginal osteophytes are noted throughout the knee, most pronounced within the medial compartment. Cruciate ligaments: The anterior and posterior cruciate ligaments are intact. Menisci: There is a complex medial meniscal tear that involves the body and posterior horn that probably represents an oblique tear extending from the periphery to the inferior articular surface. An undersurface meniscal flap is seen extending into the adjacent medial gutter. This tear propagates to the posterior meniscal root with moderate grade partial-thickness tearing present. Grade 2 signal involving the anterior horn of the lateral meniscus is present without a discrete tear evident. Otherwise, the lateral meniscus is unremarkable. Medial structures: The medial collateral ligament is thickened and demonstrates mild increased signal at the femoral attachment. There is a medial patellar plica. The semimembranosus tendon insertion is intact. The imaged portions of the pes anserinus tendons are unremarkable. A small amount of fluid is contained within the pes anserinus bursa. Lateral structures: The popliteal tendon is mildly edematous at its origin. The lateral collateral ligament proper (fibular collateral ligament) and the proximal tibiofibular ligaments are intact. The distal aspect of the biceps femoris tendon and the iliotibial band are intact. Anterior structures: The quadriceps and patellar tendons are intact. The lateral margin of the proximal patellar tendon is noted to extend over the anterior margin of the lateral tibial plateau and demonstrates mild increased signal. There is mild increased signal evident within the superolateral margin of the infrapatellar fat pad. There is mild fluid/edema within the prepatellar soft tissues. IMPRESSION: 1. Complex medial meniscal tear with a small undersurface flap extending into the adjacent medial gutter. 2. Medial collateral ligament sprain versus scarring. 3. Minimal proximal patellar tendinopathy is suggestive of sequela from lateral femoral condyle-patellar tendon friction syndrome given positioning of the patellar tendon. Please correlate clinically. 4. Possible mild popliteal tendinopathy. 5. Minimal fluid within the pes anserinus bursa may be related to bursitis. 6. Possible prepatellar bursitis. 7. Moderate degenerative changes of the knee are most pronounced within the medial compartment. 8. Moderate-sized knee joint effusion. 9. Medial patellar plica. Dictated by: Prabhakar Quijano M.D. on 03/07/2019 at 15:49 Approved by: Prabhakar Quijano M.D. on 03/07/2019 at 15:54
== END ==
PROVIDERS: Family Provider Family Medicine; PCP Family Medicine; Visit Provider Orthopaedic Surgery Adult Reconstructive Orthopaedic Surgery
DX: M25.562 Pain in left knee (principal); S83.232A Complex tear of medial meniscus, current injury, left knee, initial encounter; M25.462 Effusion, left knee; M67.52 Plica syndrome, left knee
CPT/HCPCS: 73721

== ENCOUNTER → 2019-11-23 14:19 | Outpatient (CLI) | payer OTHER, SELFPAY ==
--- NOTE | 2019-11-23 | DI.MG.S_ITS ---
BILATERAL DIGITAL SCREENING MAMMOGRAM 3D/2D WITH CAD: 11/23/2019 CLINICAL: Routine screening. Family history of breast cancer. Comparison is made to exams dated: 10/31/2018 mammogram, 08/14/2017 mammogram, and 07/29/2016 mammogram - [facility]. There are scattered fibroglandular elements in both breasts. Current study was also evaluated with a Computer Aided Detection (CAD) system. No significant masses, calcifications, or other findings are seen in either breast. There has been no significant interval change. IMPRESSION: NEGATIVE There is no mammographic evidence of malignancy. A 1 year screening mammogram is recommended. This exam was interpreted at Station ID: [id number]. NOTE: For mammograms, a report in lay terms will be sent to the patient. Approximately 15% of breast malignancies will not be visualized mammographically. In the management of a palpable breast mass, a negative mammogram must not discourage biopsy of a clinically suspicious lesion. Electronically Signed By: Otto barber/mirian:11/23/2019 17:27:28 letter sent: Normal Exam ACR BI-RADS Category 1: Negative [id number]
== END ==
PROVIDERS: Family Provider Family Medicine; PCP Internal Medicine
DX: Z12.31 Encounter for screening mammogram for malignant neoplasm of breast (principal); Z80.3 Family history of malignant neoplasm of breast
CPT/HCPCS: 77063; 77067

== ENCOUNTER 2022-10-27 17:09 | Inpatient (IN) | payer OTHER, SELFPAY ==
[2022-10-27] VITALS (17 sets, daily range): BP systolic 107–149; BP diastolic 55–89; PULSE 63–82; RESP 10–32; TEMP 28.6–36.7; O2SAT 94–99; BMI 36.8
--- NOTE | 2022-10-27 17:27 | DI.RAD.S_ITS ---
PROCEDURE: XR CHEST 1V INDICATIONS: chest pain TECHNIQUE: One view of the chest was acquired. COMPARISON: [facility], , CHEST 1 VIEW, 01/25/2017, 11:47. FINDINGS: Surgical changes and devices: None. Lungs and pleura: Lungs are clear. No pleural effusions or pneumothorax. Mediastinum: Mediastinal contours appear normal. Heart size is normal. Bones and chest wall: No suspicious bony lesions. Overlying soft tissues appear unremarkable. IMPRESSION: No acute cardiopulmonary abnormality. Dictated by: Hector Maya M.D. on 10/27/2022 at 17:35 Approved by: Hector Maya M.D. on 10/27/2022 at 17:37
[2022-10-27 17:52] LABS: INR 1.1 (0.9-1.3); Prothrombin Time 12.5 SECONDS (10.1-12.7)
[2022-10-27 17:55] LABS: PTT Partial Thromboplastin Tim 30 SECONDS (26-36)
[2022-10-27 17:57] LABS: Alanine Aminotransferase 42 IU/L (<35); Albumin 4.8 g/dL (3.5-5.0); Albumin Globulin Ratio 1.2 (1.0-2.8); Alkaline Phosphatase 60 U/L (38-126); Aspartate Aminotransferase 37 IU/L (14-36); BUN Creatinine Ratio 15.9 (6-22); Bilirubin Total 0.8 mg/dL (0.2-1.3); Blood Urea Nitrogen 36 mg/dL (7-17); Calcium 10.3 mg/dL (8.4-10.2); Carbon Dioxide 22 mmol/L (22-32); Chloride 103 mmol/L (98-107); Creatine Kinase 204 U/L (30-135); Estimated Glomerular Filt Rate 24 mL/min (>60); Globulin 3.9 g/dL (1.7-4.1); Glucose 187 mg/dL (80-110); HEMOLYSIS < 15 (0-50); Lipase 85 U/L (23-300); Magnesium 1.8 mg/dL (1.6-2.3); Potassium 4.2 mmol/L (3.4-5.1); Sodium 138 mmol/L (137-145); Total Protein 8.7 g/dL (6.3-8.2)
[2022-10-27 17:58] LABS: Add Manual Diff / Slide Review NO; Basophils Absolute Auto 100 /uL (0-100); Basophils Percent Auto 0.7 % (0-2); Eosinophils Absolute Auto 100 /uL (0-450); Eosinophils Percent Auto 0.8 % (2-4); Hematocrit 48.1 % (36-46); Hemoglobin 16.4 g/dL (12.0-16.0); Lymphocytes Absolute Auto 1700 /uL (1100-4500); Lymphocytes Percent Auto 12.6 % (25-40); Mean Corpuscular HGB Conc 34.1 % (30-36); Mean Corpuscular Hemoglobin 32.2 PG (26-34); Mean Corpuscular Volume 94.4 fL (80-100); Monocytes Absolute Auto 800 /uL (0-900); Monocytes Percent Auto 5.7 % (3-14); Neutrophils Absolute Auto 10900 /uL (1500-7000); Neutrophils Percent Auto 80.2 % (50-75); Platelet Count 268 X10^3/uL (150-400); Red Blood Cell Count 5.09 X10^6/uL (4.0-5.2); White Blood Cell Count 13.6 X10^3/uL (4.5-11.0)
--- NOTE | 2022-10-27 18:03 | ED.CHESTPAIN ---
HPI - Chest Pain General Chief Complaint: Chest Pain Stated Complaint: near syncope Time Seen by Provider: 10/27/22 17:56 Source: patient Mode of arrival: Family Vehicle Limitations: no limitations History of Present Illness HPI narrative: Patient 62-year-old female history of insulin-dependent diabetes hypertension hyperlipidemia congestive heart failure presents today with sudden onset shortness of breath dizziness nausea vomiting and diaphoresis. She reports that she was sitting in [place] when she started to not feel well she was able to drive herself to her diyggr-ga-iql's house where she noted that she was short of breath. Patient reports that yesterday she noted that her legs were swollen she took 80 mg of furosemide. When she got to her bhlagi-wq-flx's house she got extremely dizzy lightheaded has a vomiting diarrhea or shortness of breath she did not pass out almost did. She reports that she has a prior history of pulmonary embolism but has also had multiple surgeries. Related Data Home Medications Medication Instructions Recorded Confirmed ascorbic acid (vitamin C) 1,000 mg 1 gram PO DAILY 10/29/17 02/03/22 tablet cholecalciferol (vitamin D3) 125 5,000 unit PO DAILY 10/29/17 02/03/22 mcg (5,000 unit) capsule Previous Rx's Medication Instructions Recorded Glucose: Home Monitoring Kit kit IJ BID ##1 04/30/17 Test Strips - Freestyle str INJ BID ##200 06/14/17 Syringes: Ultra Fine Insulin #90 ea 04/13/18 Syringe w/Needle ketoconazole 2 % topical cream See Rx Instructions topical BID 05/24/18 #30 grams triamcinolone acetonide 0.1 % See Rx Instructions topical BID 05/24/18 topical cream #30 grams blood sugar diagnostic (Blood #300 ea 03/01/19 Glucose Test strips) blood-glucose meter #1 ea 06/21/19 losartan 100 mg tablet (Cozaar) 100 mg PO QDAY #90 tabs 08/02/19 atorvastatin 40 mg tablet 40 mg PO HS #90 tabs 08/09/19 carvedilol 25 mg tablet (Coreg) 37.5 mg PO BID #405 tabs 08/09/19 insulin glargine 100 unit/mL 85 unit (0.85 mL) SUBCUT BEDTIME 08/09/19 subcutaneous solution (Lantus #80 mL U-100 Insulin) spironolactone 50 mg tablet 50 mg PO BID #180 tabs 08/09/19 furosemide 40 mg tablet 40 mg PO QDAYP PRN edema #90 tabs 08/10/19 chlorthalidone 25 mg tablet 25 mg PO QDAY #90 tabs 08/08/20 citalopram 20 mg tablet See Rx Instructions .Route 08/08/20 .COMPLEX #90 tabs omeprazole 20 mg capsule,delayed 20 mg PO BID #180 caps 08/08/20 release trazodone 50 mg tablet See Rx Instructions .Route 08/08/20 .COMPLEX #270 tabs oxybutynin chloride 10 mg 10 mg PO DAILY #90 tabs 09/12/20 tablet,extended release 24 hr testosterone cypionate 200 mg/mL 100 mg (0.5 mL) IM Q4W #1 mL 05/22/21 intramuscular oil testosterone cypionate 200 mg/mL 150 mg (0.75 mL) IM Q4W #1 mL 12/18/21 intramuscular oil (Depo-Testosterone) clobetasol 0.05 % topical cream 1 applic topical BEDTIME #45 grams 01/08/22 CMP Estriol Vaginal Cream 0.2% 1 g vaginal BEDTIME #30 grams 02/03/22 estradiol 0.01% (0.1 mg/gram) 1 g vaginal 3XW Vaginal atrophy 02/03/22 vaginal cream #42.5 grams Allergies Allergy/AdvReac Type Severity Reaction Status Date / Time No Known Drug Allergies Allergy Verified 02/03/22 10:01 Review of Systems Review of Systems ROS Unobtainable: All systems reviewed & are unremarkable except as noted in HPI and below Patient History Medical History Anxiety Cardiac arrhythmia Chronic major depressive disorder (03/25/11) Diabetes mellitus type 2, insulin dependent Diastolic heart failure (03/25/11) Diminished libido Essential hypertension (03/25/11) Lichen sclerosus of female genitalia Menopause present Mixed hyperlipidemia (03/25/11) Morbid obesity (10/22/15) Nonalcoholic fatty liver disease (03/18/16) Osteoarthritis, hand, primary localized Sleep apnea Urge incontinence Surgical History Anesthesia History of carpal tunnel repair History of foot surgery History of knee surgery History of neck surgery History of removal of cyst Status post appendectomy Status post appendectomy Status post cholecystectomy Status post hysterectomy Status post laparoscopic cholecystectomy Status post tubal ligation Tumor Social History marital status: Smoking Status: Never smoker alcohol intake: never substance use type: does not use Smoking Status: Never smoker alcohol intake frequency: other Substance Use Type: does not use Exam Initial Vital Signs Initial Vital Signs: Vital Signs Temperature 98.0 F 10/27/22 17:28 Pulse Rate 67 10/27/22 17:28 Respiratory Rate 18 10/27/22 17:28 Blood Pressure 119/55 L 10/27/22 17:28 Pulse Oximetry 98 10/27/22 17:28 Oxygen Delivery Method Room Air 10/27/22 17:28 GENERAL: Alert 62-year-old female HEENT: Head atraumatic,EOMI, pupils reactive, face symmetric, moist mucous membranes CARDIOVASCULAR: Regular rate and rhythm without murmurs, rubs or gallops. RESPIRATORY: Clear breath sounds obvious conversational dyspnea no crackles ABDOMEN: Soft, nontender. Normoactive bowel sounds all 4 quadrants. No guarding or rebound. EXTREMITIES: Normal range of motion, no clubbing or edema. Neurovascularly intact NEUROLOGICAL: Alert and oriented x4. SKIN: Warm, dry, no laceration, no petechiae, no rashes or lesions. Course Orders Ordered: ED Orders 10/27/22 18:59 High flow/High humidity nasal NOW 10/27/22 19:18 US periph venous low extrem bi Stat 10/27/22 19:40 BiPAP Ventilatory Support RT PROTOCOL 10/27/22 20:00 Troponin I Stat 10/28/22 01:45 Sputum Culture Urgent Urine Culture Urgent 10/28/22 01:52 Education, smoking cessation ONGOING 10/28/22 03:00 Respiratory Panel (Film Array) Urgent 10/28/22 05:00 Hemoglobin and Hematocrit DAILY Lactate (Lactic Acid) Routine Platelet Count DAILY 10/29/22 05:00 Hemoglobin and Hematocrit DAILY Platelet Count DAILY Acetaminophen (Acetaminophen 325 Mg Tablet) 650 mg PO Q6H PRN PRN Reason: Fever/Mild Pain (1-3) Hydrocodone Bitart/Acetaminophen (Hydrocodone/Acet 5/325 Tablet) 2 tab PO Q4H PRN PRN Reason: Pain, Severe (5-10) Al Hydrox/Mg Hydrox/Simethicone (Mag Hydrox/Alum/Simeth 30 Ml Udc) 30 ml PO Q6HR PRN PRN Reason: Dyspepsia Calcium Carbonate (Calcium Carbonate 500 Mg Tab) 1,000 mg PO Q4HR PRN PRN Reason: Dyspepsia Dextrose (Dextrose 50 % In Water 25 Gm/50 Ml Syringe) 25 gm IV PRN PRN PRN Reason: Hypoglycemia Enoxaparin Sodium (Enoxaparin 30 Mg/0.3 Ml Syringe) 30 mg SUBCUT DAILY [facility] Lactated Ringer's (Lactated Ringers) 1,000 mls @ 42 mls/hr IV CONT [facility] Ceftriaxone Sodium 1,000 mg/ (Sodium Chloride) 100 mls @ 200 mls/hr IV DAILY [facility] Insulin Human Lispro (Insulin Lispro 100 Unit/Ml 3ml Vial) 0 unit SUBCUT ACHS YOUSUF; Protocol Lorazepam (Lorazepam 0.5 Mg Tablet) 0.5 mg PO Q4HR PRN PRN Reason: Anxiety Last Admin: 10/28/22 03:48 Dose: 0.5 mg Documented By: JENNIFER Naloxone HCl (Naloxone 0.4 Mg/Ml Vial) 0.2 mg IV Q2MIN PRN PRN Reason: Opiate Reversal Ondansetron HCl (Ondansetron 4 Mg Odt) 4 mg PO Q8HR PRN PRN Reason: Nausea And Vomiting Ondansetron HCl (Ondansetron 4 Mg/2 Ml Inj) 4 mg IV Q8HR PRN PRN Reason: Nausea And Vomiting Last Admin: 10/28/22 03:48 Dose: 4 mg Documented By: JENNIFER Discontinued Medications Albuterol/Ipratropium (Albuterol/Ipratropium 3 Ml Ampul) 3 ml INH NOW ONE Stop: 10/27/22 18:19 Last Admin: 10/27/22 19:11 Dose: 3 ml Documented By: MARILYN Aspirin (Aspirin 81 Mg Chew Tab) 324 mg PO NOW ONE Stop: 10/27/22 17:28 Last Admin: 10/27/22 18:18 Dose: Not Given Documented By: OLIVERIO Furosemide (Furosemide 40 Mg/4 Ml Vial) 40 mg IV NOW ONE Stop: 10/27/22 18:19 Last Admin: 10/27/22 18:38 Dose: 40 mg Documented By: OLIVERIO Heparin Sodium (Porcine) (Heparin 5,000 Unit/Ml Vial) 7,500 unit IV NOW ONE Stop: 10/27/22 19:26 Last Admin: 10/27/22 19:46 Dose: 7,500 unit Documented By: JARET Sodium Chloride (Normal Saline 0.9%) 1,000 mls @ 1,000 mls/hr IV BOLUS ONE Stop: 10/27/22 19:02 Last Admin: 10/27/22 18:17 Dose: Not Given Documented By: OLIVERIO Heparin Sodium/Dextrose (Heparin Drip) 25,000 unit in 500 mls @ 24 mls/hr IV CONT YOUSUF; Protocol Last Titration: 10/28/22 00:17 Dose: 0 units/hr, 0 mls/hr Documented By: JARET Co-signed By: GC Admin: 10/27/22 20:48 Dose: 1,200 units/hr, 24 mls/hr Documented By: JARET Co-signed By: JENNIFER Lactated Ringer's (Lactated Ringers) 1,000 mls @ 1,000 mls/hr IV BOLUS ONE Stop: 10/28/22 02:31 Last Admin: 10/28/22 03:48 Dose: 1,000 mls/hr Documented By: JENNIFER Lactated Ringer's (Lactated Ringers) 1,000 mls @ 1,000 mls/hr IV BOLUS ONE Stop: 10/28/22 02:31 Ceftriaxone Sodium 2,000 mg/ (Sodium Chloride) 100 mls @ 200 mls/hr IV NOW ONE Stop: 10/28/22 02:07 Last Admin: 10/28/22 03:49 Dose: 200 mls/hr Documented By: JENNIFER Morphine Sulfate (Morphine 2 Mg/Ml Inj) 2 mg IV NOW ONE Stop: 10/28/22 01:50 Last Admin: 10/28/22 01:54 Dose: 2 mg Documented By: JARET Vital Signs Vital signs: Vital Signs - 8 hr 10/27/22 19:57 10/27/22 20:00 10/27/22 20:00 Pulse Rate 73 Respiratory Rate 30 H Blood Pressure 140/81 Pulse Oximetry 99 Oxygen Delivery Method BiPAP Oxygen Flow Rate Fraction of Inspired Oxygen 40 10/27/22 20:15 10/27/22 20:15 10/27/22 20:30 Pulse Rate 76 Respiratory Rate 24 Blood Pressure 143/89 H 140/85 Pulse Oximetry 99 Oxygen Delivery Method BiPAP Oxygen Flow Rate Fraction of Inspired Oxygen 10/27/22 20:30 10/27/22 20:45 10/27/22 20:45 Pulse Rate 78 80 Respiratory Rate 22 27 H Blood Pressure 142/83 H Pulse Oximetry 98 98 Oxygen Delivery Method BiPAP BiPAP Oxygen Flow Rate Fraction of Inspired Oxygen 10/27/22 21:00 10/27/22 21:00 10/27/22 21:16 Pulse Rate 75 Respiratory Rate 17 Blood Pressure 134/78 124/81 Pulse Oximetry 99 Oxygen Delivery Method BiPAP Oxygen Flow Rate Fraction of Inspired Oxygen 10/27/22 21:16 10/28/22 00:11 10/28/22 00:15 Pulse Rate 82 66 Respiratory Rate 23 21 Blood Pressure 127/76 Pulse Oximetry 98 Oxygen Delivery Method BiPAP Oxygen Flow Rate Fraction of Inspired Oxygen 10/28/22 00:15 10/28/22 00:04 10/28/22 01:13 Pulse Rate 66 68 Respiratory Rate 30 H 24 Blood Pressure Pulse Oximetry 99 97 Oxygen Delivery Method BiPAP Nasal Cannula Oxygen Flow Rate 4 Fraction of Inspired Oxygen 40 36 10/28/22 00:30 10/28/22 00:30 10/28/22 01:00 Pulse Rate 66 66 Respiratory Rate 20 26 H Blood Pressure 126/76 Pulse Oximetry 97 98 Oxygen Delivery Method BiPAP BiPAP Oxygen Flow Rate Fraction of Inspired Oxygen 10/28/22 01:01 10/28/22 01:01 10/28/22 01:30 Pulse Rate 66 Respiratory Rate 25 H Blood Pressure 127/79 119/81 Pulse Oximetry 99 Oxygen Delivery Method Oxygen Flow Rate Fraction of Inspired Oxygen 10/28/22 01:30 Pulse Rate 65 Respiratory Rate 31 H Blood Pressure Pulse Oximetry 97 Oxygen Delivery Method Nasal Cannula Oxygen Flow Rate 4 Fraction of Inspired Oxygen MDM - Chest Pain Lab Data 10/27/22 17:35 10/27/22 17:35 Labs: Lab Results 10/27/22 10/27/22 10/27/22 Range/Units 17:35 17:35 17:35 WBC 13.6 H (4.5-11.0) X10^3/uL RBC 5.09 (4.0-5.2) X10^6/uL Hgb 16.4 H (12.0-16.0) g/dL Hct 48.1 H (36-46) % MCV 94.4 (80-100) fL MCH 32.2 (26-34) PG MCHC 34.1 (30-36) % RDW 15.0 H (11.6-14.8) % Plt Count 268 (150-400) X10^3/uL Neut % (Auto) 80.2 H (50-75) % Lymph % (Auto) 12.6 L (25-40) % [place] % (Auto) 5.7 (3-14) % Eos % (Auto) 0.8 L (2-4) % Baso % (Auto) 0.7 (0-2) % Neut # (Auto) 72608 H (8728-8823) /uL Lymph # (Auto) 1700 (0046-2446) /uL [place] # (Auto) 800 (0-900) /uL Eos # (Auto) 100 (0-450) /uL Baso # (Auto) 100 (0-100) /uL PT 12.5 (10.1-12.7) SECONDS INR 1.1 (0.9-1.3) APTT 30 (26-36) SECONDS D-Dimer (<500) ng/ml ABG pH (7.35-7.45) ABG pCO2 (35-45) mmHg ABG pO2 (80-100) mmHg ABG HCO3 (23-27) mmol/L ABG Total CO2 (23-27) mmol/L ABG O2 Saturation (95-100) % ABG Base Excess (-2-3) mmol/L FiO2 Sodium 138 (137-145) mmol/L Potassium 4.2 (3.4-5.1) mmol/L Chloride 103 (98-107) mmol/L Carbon Dioxide 22 (22-32) mmol/L BUN 36 H (7-17) mg/dL Creatinine 2.27 H (0.52-1.04) mg/dL Estimated GFR 24 L (>60) mL/min BUN/Creatinine Ratio 15.9 (6-22) Glucose 187 H (80-110) mg/dL Lactate (0.7-2.1) mmol/L Calcium 10.3 H (8.4-10.2) mg/dL Magnesium 1.8 (1.6-2.3) mg/dL Total Bilirubin 0.8 (0.2-1.3) mg/dL AST 37 H (14-36) IU/L ALT 42 H (<35) IU/L Alkaline Phosphatase 60 (38-126) U/L Total Creatine Kinase 204 H (30-135) U/L Troponin I < 0.012 (0.01-0.034) ng/mL NT-Pro-B Natriuret Pep (<125) pg/mL Total Protein 8.7 H (6.3-8.2) g/dL Albumin 4.8 (3.5-5.0) g/dL Globulin 3.9 (1.7-4.1) g/dL Albumin/Globulin Ratio 1.2 (1.0-2.8) Lipase 85 (23-300) U/L Procalcitonin (<0.5) ng/mL SARS-CoV-2 (PCR) (Negative) 10/27/22 10/27/22 10/27/22 Range/Units 17:35 17:35 17:35 WBC (4.5-11.0) X10^3/uL RBC (4.0-5.2) X10^6/uL Hgb (12.0-16.0) g/dL Hct (36-46) % MCV (80-100) fL MCH (26-34) PG MCHC (30-36) % RDW (11.6-14.8) % Plt Count (150-400) X10^3/uL Neut % (Auto) (50-75) % Lymph % (Auto) (25-40) % [place] % (Auto) (3-14) % Eos % (Auto) (2-4) % Baso % (Auto) (0-2) % Neut # (Auto) (9442-1716) /uL Lymph # (Auto) (9915-0437) /uL [place] # (Auto) (0-900) /uL Eos # (Auto) (0-450) /uL Baso # (Auto) (0-100) /uL PT (10.1-12.7) SECONDS INR (0.9-1.3) APTT (26-36) SECONDS D-Dimer 517 H (<500) ng/ml ABG pH (7.35-7.45) ABG pCO2 (35-45) mmHg ABG pO2 (80-100) mmHg ABG HCO3 (23-27) mmol/L ABG Total CO2 (23-27) mmol/L ABG O2 Saturation (95-100) % ABG Base Excess (-2-3) mmol/L FiO2 Sodium (137-145) mmol/L Potassium (3.4-5.1) mmol/L Chloride (98-107) mmol/L Carbon Dioxide (22-32) mmol/L BUN (7-17) mg/dL Creatinine (0.52-1.04) mg/dL Estimated GFR (>60) mL/min BUN/Creatinine Ratio (6-22) Glucose (80-110) mg/dL Lactate 2.8 H (0.7-2.1) mmol/L Calcium (8.4-10.2) mg/dL Magnesium (1.6-2.3) mg/dL Total Bilirubin (0.2-1.3) mg/dL AST (14-36) IU/L ALT (<35) IU/L Alkaline Phosphatase (38-126) U/L Total Creatine Kinase (30-135) U/L Troponin I (0.01-0.034) ng/mL NT-Pro-B Natriuret Pep 15 (<125) pg/mL Total Protein (6.3-8.2) g/dL Albumin (3.5-5.0) g/dL Globulin (1.7-4.1) g/dL Albumin/Globulin Ratio (1.0-2.8) Lipase (23-300) U/L Procalcitonin (<0.5) ng/mL SARS-CoV-2 (PCR) (Negative) 10/27/22 10/27/22 10/27/22 Range/Units 17:35 18:23 18:48 WBC (4.5-11.0) X10^3/uL RBC (4.0-5.2) X10^6/uL Hgb (12.0-16.0) g/dL Hct (36-46) % MCV (80-100) fL MCH (26-34) PG MCHC (30-36) % RDW (11.6-14.8) % Plt Count (150-400) X10^3/uL Neut % (Auto) (50-75) % Lymph % (Auto) (25-40) % [place] % (Auto) (3-14) % Eos % (Auto) (2-4) % Baso % (Auto) (0-2) % Neut # (Auto) (9256-7300) /uL Lymph # (Auto) (3948-4064) /uL [place] # (Auto) (0-900) /uL Eos # (Auto) (0-450) /uL Baso # (Auto) (0-100) /uL PT (10.1-12.7) SECONDS INR (0.9-1.3) APTT (26-36) SECONDS D-Dimer (<500) ng/ml ABG pH 7.43 (7.35-7.45) ABG pCO2 30.3 L (35-45) mmHg ABG pO2 76 L (80-100) mmHg ABG HCO3 20 L (23-27) mmol/L ABG Total CO2 21 L (23-27) mmol/L ABG O2 Saturation 96 (95-100) % ABG Base Excess -4.0 L (-2-3) mmol/L FiO2 32 Sodium (137-145) mmol/L Potassium (3.4-5.1) mmol/L Chloride (98-107) mmol/L Carbon Dioxide (22-32) mmol/L BUN (7-17) mg/dL Creatinine (0.52-1.04) mg/dL Estimated GFR (>60) mL/min BUN/Creatinine Ratio (6-22) Glucose (80-110) mg/dL Lactate (0.7-2.1) mmol/L Calcium (8.4-10.2) mg/dL Magnesium (1.6-2.3) mg/dL Total Bilirubin (0.2-1.3) mg/dL AST (14-36) IU/L ALT (<35) IU/L Alkaline Phosphatase (38-126) U/L Total Creatine Kinase (30-135) U/L Troponin I (0.01-0.034) ng/mL NT-Pro-B Natriuret Pep (<125) pg/mL Total Protein (6.3-8.2) g/dL Albumin (3.5-5.0) g/dL Globulin (1.7-4.1) g/dL Albumin/Globulin Ratio (1.0-2.8) Lipase (23-300) U/L Procalcitonin 0.06 (<0.5) ng/mL SARS-CoV-2 (PCR) Negative (Negative) 10/27/22 10/27/22 Range/Units 20:00 20:00 WBC (4.5-11.0) X10^3/uL RBC (4.0-5.2) X10^6/uL Hgb (12.0-16.0) g/dL Hct (36-46) % MCV (80-100) fL MCH (26-34) PG MCHC (30-36) % RDW (11.6-14.8) % Plt Count (150-400) X10^3/uL Neut % (Auto) (50-75) % Lymph % (Auto) (25-40) % [place] % (Auto) (3-14) % Eos % (Auto) (2-4) % Baso % (Auto) (0-2) % Neut # (Auto) (0760-1227) /uL Lymph # (Auto) (1249-7610) /uL [place] # (Auto) (0-900) /uL Eos # (Auto) (0-450) /uL Baso # (Auto) (0-100) /uL PT (10.1-12.7) SECONDS INR (0.9-1.3) APTT (26-36) SECONDS D-Dimer (<500) ng/ml ABG pH (7.35-7.45) ABG pCO2 (35-45) mmHg ABG pO2 (80-100) mmHg ABG HCO3 (23-27) mmol/L ABG Total CO2 (23-27) mmol/L ABG O2 Saturation (95-100) % ABG Base Excess (-2-3) mmol/L FiO2 Sodium (137-145) mmol/L Potassium (3.4-5.1) mmol/L Chloride (98-107) mmol/L Carbon Dioxide (22-32) mmol/L BUN (7-17) mg/dL Creatinine (0.52-1.04) mg/dL Estimated GFR (>60) mL/min BUN/Creatinine Ratio (6-22) Glucose (80-110) mg/dL Lactate 2.1 (0.7-2.1) mmol/L Calcium (8.4-10.2) mg/dL Magnesium (1.6-2.3) mg/dL Total Bilirubin (0.2-1.3) mg/dL AST (14-36) IU/L ALT (<35) IU/L Alkaline Phosphatase (38-126) U/L Total Creatine Kinase (30-135) U/L Troponin I < 0.012 (0.01-0.034) ng/mL NT-Pro-B Natriuret Pep (<125) pg/mL Total Protein (6.3-8.2) g/dL Albumin (3.5-5.0) g/dL Globulin (1.7-4.1) g/dL Albumin/Globulin Ratio (1.0-2.8) Lipase (23-300) U/L Procalcitonin (<0.5) ng/mL SARS-CoV-2 (PCR) (Negative) Urine Dip Bedside Urine Glucose Negative Bedside Urine Bilirubin - Negative Bedside Urine Ketone - Negative Urine Specific [place] 1.015 Bedside Urine Occult Blood - Negative Bedside Urine pH 5.5 Bedside Urine Protein - Negative Bedside Urine Urobilinogen - Negative Bedside Urine Nitrite - Negative Bedside Urine Leukocytes - Negative Esterase Imaging Data Chest x-ray: Radiologist's Impression: PROCEDURE:? XR CHEST 1V ? INDICATIONS:? chest pain ? TECHNIQUE:? One view of the chest was acquired.? ? COMPARISON:? [facility], , CHEST 1 VIEW, 01/25/2017, 11:47. ? FINDINGS:? ? Surgical changes and devices:? None.? ? Lungs and pleura:? Lungs are clear.? No pleural effusions or pneumothorax.? ? Mediastinum:? Mediastinal contours appear normal.? Heart size is normal.? ? Bones and chest wall:? No suspicious bony lesions.? Overlying soft tissues appear unremarkable.? ? IMPRESSION:? No acute cardiopulmonary abnormality. ? ? ? Dictated by: Hector Maya M.D. on 10/27/2022 at 17:35 ? US - DVT: Radiologist's Impression: IMPRESSION:? ? 1.? No evidence of deep venous thrombosis in the right or left lower extremity. ? ? Dictated by: Pola Molina M.D. on 10/27/2022 at 20:24 ? CT scan - chest: Radiologist's Impression: No evidence of pulmonary embolism No acute airspace consolidation Small right middle lobe pulmonary nodule measuring up to 0.5 cm. The findings may have been present on prior study but evaluation is limited due to differences in technique. Consider follow-up in 12 months. ECG Data Interpretation: Sinus rhythm rate 65 NV interval 130 QRS 80 QTC 30 no changes Q-waves noted in lead 3 only similar to prior MDM Narrative Medical decision making narrative: Patient has obvious conversational dyspnea she is more dyspneic with any sort of activity including lying down for Bernal catheter. ABG does show PaO2 76 on 3 L. She initially was trialed on high-flow, but still had some work of breathing she was then put on BiPAP overall looks much better on BiPAP work of breathing is significantly less. Unfortunately with history of prior PE no known cause a sudden onset of hypoxia with obvious dyspnea she does need a CT scan for rule out PE. Unfortunately our CT scanner is down. Arrangements have been made for her to [facility] and return. Patient also has low GFR of 24 there is increased risk for GUERLINE. However with obvious hypoxia no obvious explanation benefit outweighs risk at this time. She will will be admitted and kidney function will be monitored. Her creatinine today is elevated 2.27 previously it was 1.2 in 2019 unclear if this is an acute change or chronic change. She also took 80 of Lasix yesterday maybe a result of that as well. She has a history of congestive heart failure however BNP is not elevated she does not appear fluid overloaded. Possible diastolic heart failure. She was given 40 of Lasix she is urinated quite a bit and is improving with BiPAP. D-dimer is 517 which is negative fit is age corrected and she is negative bilateral lower extremity DVT studies. However with ongoing hypoxia and shortness of breath she is prophylactic least started on a heparin drip with a heparin bolus prior to transfer to CT. CT eventually does rule out pulmonary embolism and other causes of hypoxia. No evidence of pneumonia. She does have mild leukocytosis 13 but she is been afebrile she has no infectious symptoms. With a negative procalcitonin. At this time I do not see reason to start antibiotics. She had sudden onset shortness of breath that is currently unexplained. Patient returned from the CT scan doing well on BiPAP. She reports that at the CT scan something got on hooked and she developed some instant shortness of breath. However here sitting up she actually is wanting a break from BiPAP and is doing well and tolerating nasal cannula. Unclear cause of her obvious conversational dyspnea possible diastolic heart failure. [facility] accepts patient Discharge Plan Departure Patient Disposition: Admitted as Observation Clinical Impression: Hypoxia Admit Date/Time: 10/28/22 01:54 Admit Provider: Marifer Aaron
[2022-10-27 18:06] LABS: NT-proBNP (BNP-Adult 18+) 15 pg/mL (<125)
[2022-10-27 18:08] LABS: Troponin I < 0.012 ng/mL (0.01-0.034)
[2022-10-27 18:37] LABS: D Dimer 517 ng/ml (<500)
[2022-10-27] MEDS: FUROSEMIDE 40 MG/4 ML VIAL IV (18:38)
[2022-10-27 18:48] LABS: COVID19 -Nasal RAPID Negative (Negative)
[2022-10-27 18:51] LABS: Lactate (Lactic Acid) 2.8 mmol/L (0.7-2.1)
[2022-10-27 19:09] LABS: Procalcitonin 0.06 ng/mL (<0.5)
[2022-10-27] MEDS: ALBUTEROL/IPRATROPIUM 3 ML AMPUL INH (19:11)
[2022-10-27 19:18] LABS: Fractionated Inspired Oxygen 32; HCO3 ABG 20 mmol/L (23-27); Oxygen Saturation ABG 96 % (95-100); PCO2 ABG 30.3 mmHg (35-45); PO2 ABG 76 mmHg (80-100); TCO2 ABG 21 mmol/L (23-27); pH ABG 7.43 (7.35-7.45)
--- NOTE | 2022-10-27 19:18 | DI.US.S_ITS ---
PROCEDURE: US PERIPH VENOUS LOW EXTREM BI INDICATIONS: HYPOXIA TECHNIQUE: Real-time imaging, as well as color and pulse Doppler interrogation, were performed of the deep veins of both legs from the inguinal ligament to the popliteal fossa. COMPARISON: None. FINDINGS: Right: The common femoral, femoral and popliteal veins are normally compressible, and free of intraluminal thrombus. Color and pulse Doppler demonstrate normal phasic intravascular flow. There is normal augmentation response to distal compression maneuver. Left: The common femoral, femoral and popliteal veins are normally compressible, and free of intraluminal thrombus. Color and pulse Doppler demonstrate normal phasic intravascular flow. There is normal augmentation response to distal compression maneuver. IMPRESSION: 1. No evidence of deep venous thrombosis in the right or left lower extremity. Dictated by: Pola Molina M.D. on 10/27/2022 at 20:24 Approved by: Pola Molina M.D. on 10/27/2022 at 20:26
[2022-10-27] MEDS: HEPARIN 5,000 UNIT/ML VIAL 7500 UNIT IV (19:46)
--- NOTE | 2022-10-27 19:52 | PC.NURSE ---
pt wanted to get up to use the bedside commode. pt got up and stated that she has more trouble breathing sitting straight up. pt placed back to bed with 2 person assist. pt is Sob. [place] care done. Inserted a 16 f estrada while pt was sitting up. inserted without difficulty. bright yellow urine. pt is still Sob. reports she was on Heparin before for blood clots in her lungs. Dr. Saeed aware and at bedside.
[2022-10-27 20:35] LABS: Reflexed Lactate in 2 Hours Y
[2022-10-27 20:35] LABS: Troponin I < 0.012 ng/mL (0.01-0.034)
[2022-10-27 20:46] LABS: Lactate 2HR (Lactic Acid Rflx) 2.1 mmol/L (0.7-2.1)
[2022-10-27] MEDS: HEPARIN DRIP 25,000 UNIT/500 ML IV.SOLN 24 UNIT IV (20:48)
--- NOTE | 2022-10-27 21:16 | PC.NURSE ---
[facility] ambulance here. report given to Michelle COLUNGA.
--- NOTE | 2022-10-27 21:38 | PC.NURSE ---
Patient leaving with [facility] now with heparin running at 1,200 units/hr, 24mls/hr.
[2022-10-28] VITALS (56 sets, daily range): BP systolic 102–159; BP diastolic 58–81; PULSE 55–74; RESP 10–37; TEMP 27.5–36.6; O2SAT 82–100; BMI 36.8
--- NOTE | 2022-10-28 00:20 | PC.NURSE ---
Patient is back from receiving a CTA at [facility]. This nurse received report from Michelle COLUNGA from [facility] transport. Michelle RN reports patient reported chest tightness on transport over and had an EKG done. Michelle also reports patient had anxiety and is now doing well. Michelle reports vital signs were stable and patient remained on BIPAP. Patient now currently in [place] and RT at bedside assessing patient.
--- NOTE | 2022-10-28 01:07 | PC.NURSE ---
Dr. Saeed states pt OK to have sips of water. RT Ryna and this nurse at bedside, RT removed pt off of BiPap. Pt currently on 4 Liters nasal cannula and taking sips of water. O2 saturation at 97%. Patient tolerating well.
--- NOTE | 2022-10-28 01:16 | RT ---
At 0111 on 10/28/22, the pt is taking break off BiPAP and is on 4L NC. Tolerating well. SpO2 97%, HR 68 BPM, spont. RR 24. Breath sounds clear. Pt alert and oriented. HOB>30 degrees, BiPAP on stand-by. Will cont. to monitor.
[2022-10-28] MEDS: LACTATED RINGERS 1,000 ML 42 ML IV (01:45)
[2022-10-28] MEDS: MORPHINE 2 MG/ML INJ IV (01:54)
--- NOTE | 2022-10-28 03:34 | PC.NURSE ---
Addendum entered by Tayler Reeder R.N. 10/28/22 03:39: Event in note occurred at 02:42. Original Note: This nurse and Hernesto RN were repositioning patient in bed and estrada catheter bag was caught on bed rail and tugged in patient. Patient verbalized discomfort and asked we remove the catheter. This nurse removed catheter, no complications. Report given to Silva RN, Provider Marifer robert.
[2022-10-28] MEDS: LACTATED RINGERS 1,000 ML 1000 ML IV ×2 (03:48→06:29)
[2022-10-28] MEDS: ONDANSETRON 4 MG/2 ML INJ IV (03:48)
[2022-10-28] MEDS: LORazepam 0.5 MG TABLET PO (03:48)
[2022-10-28] MEDS: cefTRIAXone 2,000 MG in SODIUM CHLORIDE 0.9% 100 ML 200 MG IV (03:49)
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
[2022-10-28 04:26] LABS: MRSA (Nasal) PCR Not Detected (Not Detect)
[2022-10-28 05:39] LABS: Adenovirus Not Detected (Not Detect); Coronavirus 229E Not Detected (Not Detect); Coronavirus HKU1 Not Detected (Not Detect); Coronavirus NL 63 Not Detected (Not Detect); Coronavirus OC43 Not Detected (Not Detect); SARS- CoV-2 Not Detected (Not Detecte)
[2022-10-28 05:40] LABS: B. parapertussis Not Detected (Not Detecte); Bordetella pertussis Not Detected (Not Detecte); Chlamydophila pneumoniae Not Detected (Not Detect); Human Metapneumovirus Not Detected (Not Detect); Human Rhinovirus/Enterovirus Not Detected (Not Detect); Influenza A Not Detected (Not Detect); Influenza B Not Detected (Not Detect); Mycoplasma pneumoniae Not Detected (Not Detect); Parainfluenza Virus 1 Not Detected (Not Detect); Parainfluenza Virus 2 Not Detected (Not Detect); Parainfluenza Virus 3 Not Detected (Not Detect); Parainfluenza Virus 4 Not Detected (Not Detect); Respiratory Syncytial Virus Not Detected (Not Detect)
[2022-10-28 06:09] LABS: Add Manual Diff / Slide Review NO; Basophils Absolute Auto 100 /uL (0-100); Basophils Percent Auto 0.5 % (0-2); Eosinophils Absolute Auto 100 /uL (0-450); Eosinophils Percent Auto 0.8 % (2-4); Hematocrit 44.1 % (36-46); Hemoglobin 14.9 g/dL (12.0-16.0); Lymphocytes Absolute Auto 2100 /uL (1100-4500); Lymphocytes Percent Auto 15.5 % (25-40); Mean Corpuscular HGB Conc 33.7 % (30-36); Mean Corpuscular Hemoglobin 31.8 PG (26-34); Mean Corpuscular Volume 94.3 fL (80-100); Monocytes Absolute Auto 1300 /uL (0-900); Monocytes Percent Auto 9.4 % (3-14); Neutrophils Absolute Auto 9800 /uL (1500-7000); Neutrophils Percent Auto 73.8 % (50-75); Platelet Count 222 X10^3/uL (150-400); Red Blood Cell Count 4.68 X10^6/uL (4.0-5.2); Red Cell Distribution Width 15.1 % (11.6-14.8); White Blood Cell Count 13.3 X10^3/uL (4.5-11.0)
[2022-10-28 06:19] LABS: Alanine Aminotransferase 79 IU/L (<35); Albumin 4.3 g/dL (3.5-5.0); Albumin Globulin Ratio 1.2 (1.0-2.8); Alkaline Phosphatase 62 U/L (38-126); Aspartate Aminotransferase 136 IU/L (14-36); BUN Creatinine Ratio 20.1 (6-22); Blood Urea Nitrogen 36 mg/dL (7-17); Calcium 9.4 mg/dL (8.4-10.2); Carbon Dioxide 20 mmol/L (22-32); Chloride 101 mmol/L (98-107); Estimated Glomerular Filt Rate 31 mL/min (>60); Globulin 3.5 g/dL (1.7-4.1); Glucose 154 mg/dL (80-110); HEMOLYSIS < 15 (0-50); Potassium 3.6 mmol/L (3.4-5.1); Sodium 134 mmol/L (137-145); Total Protein 7.8 g/dL (6.3-8.2)
[2022-10-28 06:27] LABS: NT-proBNP (BNP-Adult 18+) 37 pg/mL (<125)
[2022-10-28 06:36] LABS: PCO2 VBG 28.7 mmHg (45-50); PO2 VBG 109 mmHg (35-45); pH VBG 7.46 (7.33-7.43)
[2022-10-28 06:37] LABS: Fractionated Inspired Oxygen 21; HCO3 VBG 20 mmol/L (24-28); Oxygen Saturation VBG 99 % (70-75); Total CO2 VBG 21 mmol/L (24-29)
[2022-10-28] MEDS: PANTOPRAZOLE DR 20 MG TABLET PO ×2 (06:46→15:58)
[2022-10-28] MEDS: LOSARTAN 50 MG TABLET 100 MG PO (08:19)
[2022-10-28] MEDS: CITALOPRAM 10 MG TABLET 20 MG PO ×2 (08:19→11:39)
[2022-10-28] MEDS: carvediloL 12.5 MG TABLET 37.5 MG PO ×2 (08:19→20:53)
[2022-10-28] MEDS: ENOXAPARIN 30 MG/0.3 ML SYRINGE SUBCUT (08:19)
[2022-10-28] MEDS: INSULIN LISPRO 100 UNIT/ML 3ML VIAL SUBCUT (08:23)
--- NOTE | 2022-10-28 10:27 | PT-IP ANOTE ---
PT eval on hold per Dr. Herndon.
[2022-10-28] MEDS: cefTRIAXone 1,000 MG in SODIUM CHLORIDE 0.9% 100 ML 200 MG IV (11:39)
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
--- NOTE | 2022-10-28 16:00 | OT.IPNOTE ---
Check on pt for OT eval and pt states just wanting to sleep at this time due to being tired. To check on pt tomorrow for OT eval.
--- NOTE | 2022-10-28 16:11 | PT.IIE ---
Surgical History (Last Reviewed 10/28/22 @ 04:42 by QUENTIN Ramos) Anesthesia History of carpal tunnel repair History of foot surgery History of knee surgery History of neck surgery History of removal of cyst Status post appendectomy Status post appendectomy Status post cholecystectomy Status post hysterectomy Status post laparoscopic cholecystectomy Status post tubal ligation Tumor Medical History (Last Reviewed 10/28/22 @ 04:42 by WILLY Ramos) Anxiety Cardiac arrhythmia Chronic major depressive disorder (03/25/11) Diabetes mellitus type 2, insulin dependent Diastolic heart failure (03/25/11) Diminished libido Essential hypertension (03/25/11) Lichen sclerosus of female genitalia Menopause present Mixed hyperlipidemia (03/25/11) Morbid obesity (10/22/15) Nonalcoholic fatty liver disease (03/18/16) Osteoarthritis, hand, primary localized Sleep apnea Urge incontinence Physical Therapy Inpatient Evaluation/Re-Eval M1 PT/OT-IP Prior Functional Status Start: 10/28/22 15:42 Freq: NEEDED Status: Active Protocol: Document 10/28/22 15:43 ES (Rec: 10/28/22 16:11 ES [id number]) Medical Review Prior Functional Status Medical History Reviewed Yes Communication Indep Mobility and Gait Indep without AD Activities of Daily Living and IADL's Indep Prior Functional Level (Other details) Patient stated she provides assistance to her with everything. Social History Household Members spouse Living Arrangements House Number of Floors (Floors) One Floor Number of Stairs To Enter/Railing? 2 steps to enter without rails M2 PT-IP Current Condition Start: 10/28/22 15:42 Freq: NEEDED Status: Active Protocol: Document 10/28/22 15:43 ES (Rec: 10/28/22 16:11 ES [id number]) Physical Therapy Current Condition Current Condition Evaluation Date 10/28/22 Treatment Diagnosis Acute respiratory failure, unsteadiness on feet Onset Date 10/27/22 M3 PT-IP Subjective Start: 10/28/22 15:42 Freq: NEEDED Status: Active Protocol: Document 10/28/22 15:43 ES (Rec: 10/28/22 16:11 ES [id number]) Subjective Physical Therapy Visit Type Type Initial Evaluation Visit Start Time 15:00 Visit Stop Time 15:32 Total Visit Minutes 32 Physical Therapy Visit Comments Patient Comments Patient alert, up in chair, CATINA present. Patient reported feeling better this afternoon, not having any nausea anymore . Agreeable to get up with PT but stated she is afraid of walking very far. Therapy Pain Assessment Pain Present Pain Present Denied Pain M4 PT-IP Mobility and Gait Start: 10/28/22 15:42 Freq: NEEDED Status: Active Protocol: Document 10/28/22 15:43 ES (Rec: 10/28/22 16:11 ES [id number]) PT-Transfer Assessment Sit to and From Stand Sit to and from Stand Standby Assistance,Use of Upper Extremities Equipment Transfer Assistive Device Gait Belt,Front Wheeled Walker Transfers Transfer Destination Chair,Toilet Transfer Technique Ambulated Transfer Ability Level of Assist Standby Assistance Comments Mobility Comments Patient up in chair and returned to chair at end of session so bed mobility not assessed. Instructed patient in appropriate set up of FWW during transfer. Gait Assessment Gait Gait Assistance Required: Contact Guard Assist Distance (Feet) 80 Assistive Devices Assistive Device Gait Belt,Front Wheeled Walker Gait Deviations General Gait Pattern Decreased Stride Length, Decreased Feet Clearance Factors Limiting Gait Function Factors Limiting Gait Function Poor Balance Comments Gait Comments Patient denied dizziness, lightheadedness, shortness of breath with ambulation. She became anxious after ~40 ft, was instructed in breathing techniques while standing still to reduce anxiety, and was able to continue back to room. SPO2 remained in 90's on RA throughout visit. Recommended patient have FWW at home for safety. CATINA placed call to obtain one during visit. PT-Balance Assessment Sitting Balance and Reactions Static Sitting Balance Ability Good Dynamic Sitting Balance Ability Good Standing Balance and Reactions Static Standing Balance Ability Good Dynamic Standing Balance Ability Fair Device Used None Balance Tests Single Limb Standing 8 sec B Tandem Standing 10 sec Comments Other Balance Tests/Deviations/Treatment 4-stage balance test = 02/02/ : 01/31; patient reached out for assistance multiple times in each position and was anxious when her balance was challenged Functional Assessments Other Functional Tests Performed AM-PAC 6 Clicks Basic Mobility t-score = 47.67 (>42.9 predicts home d/c) M5 PT-IP Objective Assessments Start: 10/28/22 15:42 Freq: NEEDED Status: Active Protocol: Document 10/28/22 15:43 ES (Rec: 10/28/22 16:11 ES [id number]) Orientation Orientation/Cognition Level of Alertness Alert Orientation Name,Age,Birthday,Month,Date, Year,Place,Situation Language Function Ability No Deficits Noted Safety Awareness Understands Safety Issues Memory Description No Deficits Noted Gross Range of Motion Upper Extremity ROM Assessment Within Functional Limits Lower Extremity ROM Assessment Within Functional Limits Strength Upper Extremity Strength Assessment Within Functional Limits Lower Extremity Strength Assessment Within Functional Limits M6 PT-IP Treatment Start: 10/28/22 15:42 Freq: NEEDED Status: Active Protocol: Document 10/28/22 15:43 ES (Rec: 10/28/22 16:11 ES [id number]) Physical Therapy Treatment Education Education Provided Safety Other Treatments Other Treatment Performed Recommended patient obtain some help at home to reduce caregiver burden with taking care of . M7 PT-IP Assessment and Plan Start: 10/28/22 15:42 Freq: NEEDED Status: Active Protocol: Document 10/28/22 15:43 ES (Rec: 10/28/22 16:11 ES [id number]) PT Summary Assessment and Plan Potential Rehabilitation Potential Excellent Status of Condition at Evaluation Stable Summary Impairments Balance,Gait,Activity Tolerance Assessment Summary Patient is a 62 year old female who presents with decreased balance and activity tolerance contributing to increased difficulty with functional mobility. She was able to perform transfers and short distance ambulation on RA with stable SPO2, though became anxious and benefitted from education on breathing techniques and energy conservation to be able to continue ambulating. She had one LOB while exiting the bathroom, able to self-correct . She may benefit from FWW at home to increase safety. She will benefit from further PT during acute stay to improve activity tolerance and strength to increase safety and independence with ambulation. Anticipate she will be able to d/c home when medically stable. Goals Bed Mobility Goal Independent Transfer Goal Independent Gait Goal Independent Gait Distance 100 ft Other Goals Patient will be able to ascend /descend 2 stairs with CGA. Days to Meet Goals 3 Frequency of Treatment Frequency Of Treatment Once a Day Treatment Plan Physical Therapy Treatment Plan Bed Mobility Training,Transfer Training,Gait Training, Therapeutic Exercise,Discharge Planning Recommendations To Nursing Amount of Assist Needed Standby Assistance Discharge Recommendations PT Discharge Recommendations Home with Assistance Transportation Needs at Discharge Private Vehicle
[2022-10-28] MEDS: TRAZODONE 50 MG TABLET PO (20:53)
[2022-10-28] MEDS: ATORVASTATIN 20 MG TABLET 40 MG PO (20:55)
[2022-10-28] MEDS: INSULIN GLARGINE 100 UNIT/ML 3ML PEN 20 UNIT SUBCUT (20:55)
[2022-10-28 22:30] LABS: x Labcorp Estim. Avg Glu (eAG) 143 mg/dL (.); x Labcorp Hemoglobin A1c 6.6 % (4.8-5.6)
[2022-10-29] VITALS (8 sets, daily range): BP systolic 109–159; BP diastolic 62–70; PULSE 57–62; RESP 16; TEMP 36.2–37; O2SAT 83–96
[2022-10-29 04:58] LABS: Add Manual Diff / Slide Review NO; Basophils Absolute Auto 100 /uL (0-100); Basophils Percent Auto 0.6 % (0-2); Eosinophils Absolute Auto 300 /uL (0-450); Eosinophils Percent Auto 3.4 % (2-4); Hematocrit 43.9 % (36-46); Hemoglobin 15.1 g/dL (12.0-16.0); Lymphocytes Absolute Auto 2500 /uL (1100-4500); Lymphocytes Percent Auto 29.2 % (25-40); Mean Corpuscular HGB Conc 34.3 % (30-36); Mean Corpuscular Hemoglobin 32.3 PG (26-34); Mean Corpuscular Volume 94.2 fL (80-100); Monocytes Absolute Auto 800 /uL (0-900); Monocytes Percent Auto 9.5 % (3-14); Neutrophils Absolute Auto 4800 /uL (1500-7000); Neutrophils Percent Auto 57.3 % (50-75); Platelet Count 227 X10^3/uL (150-400); Red Blood Cell Count 4.67 X10^6/uL (4.0-5.2); Red Cell Distribution Width 15.2 % (11.6-14.8); White Blood Cell Count 8.4 X10^3/uL (4.5-11.0)
[2022-10-29 05:09] LABS: Alanine Aminotransferase 99 IU/L (<35); Albumin 4.2 g/dL (3.5-5.0); Albumin Globulin Ratio 1.2 (1.0-2.8); Alkaline Phosphatase 66 U/L (38-126); Aspartate Aminotransferase 64 IU/L (14-36); BUN Creatinine Ratio 19.9 (6-22); Bilirubin Total 0.6 mg/dL (0.2-1.3); Blood Urea Nitrogen 28 mg/dL (7-17); Calcium 9.3 mg/dL (8.4-10.2); Carbon Dioxide 23 mmol/L (22-32); Chloride 102 mmol/L (98-107); Estimated Glomerular Filt Rate 42 mL/min (>60); Globulin 3.5 g/dL (1.7-4.1); Glucose 126 mg/dL (80-110); HEMOLYSIS < 15 (0-50); Potassium 3.7 mmol/L (3.4-5.1); Sodium 136 mmol/L (137-145); Total Protein 7.7 g/dL (6.3-8.2)
[2022-10-29] MEDS: PANTOPRAZOLE DR 20 MG TABLET PO (06:42)
[2022-10-29] MEDS: LOSARTAN 50 MG TABLET 100 MG PO (08:10)
[2022-10-29] MEDS: ENOXAPARIN 40 MG/0.4 ML SYRINGE SUBCUT (08:10)
[2022-10-29] MEDS: cefTRIAXone 1,000 MG in SODIUM CHLORIDE 0.9% 100 ML 200 MG IV (08:10)
[2022-10-29] MEDS: CITALOPRAM 10 MG TABLET 40 MG PO (08:10)
[2022-10-29] MEDS: carvediloL 12.5 MG TABLET 37.5 MG PO (08:10)
--- NOTE | 2022-10-29 10:17 | PT.IPTN ---
Current Diagnoses Sepsis, unspecified organism (10/28/22) Physical Therapy Treatment Note M2 PT-IP Current Condition Start: 10/28/22 15:42 Freq: NEEDED Status: Active Protocol: Document 10/28/22 15:43 ES (Rec: 10/28/22 16:11 ES [id number]) Physical Therapy Current Condition Current Condition Evaluation Date 10/28/22 Treatment Diagnosis Acute respiratory failure, unsteadiness on feet Onset Date 10/27/22 M3 PT-IP Subjective Start: 10/28/22 15:42 Freq: NEEDED Status: Active Protocol: Document 10/29/22 10:02 KS (Rec: 10/29/22 11:19 KS [id number]) Subjective Physical Therapy Visit Type Type Treatment Note Visit Start Time 10:02 Visit Stop Time 10:17 Total Visit Minutes 15 Number of LINUX DEVELOPER Visits 1 Physical Therapy Visit Comments Patient Comments Pt in bed, agreeable to work w / PT. Therapy Pain Assessment Pain Present Pain Present Denied Pain M4 PT-IP Mobility and Gait Start: 10/28/22 15:42 Freq: NEEDED Status: Active Protocol: Document 10/29/22 10:02 KS (Rec: 10/29/22 11:19 KS [id number]) PT-Transfer Assessment Sit to and From Stand Sit to and from Stand Standby Assistance,Use of Upper Extremities Equipment Transfer Assistive Device Gait Belt,Front Wheeled Walker Transfers Transfer Destination Bed Transfer Technique Ambulated Transfer Ability Level of Assist Standby Assistance Comments Mobility Comments Pt in bed upon arrival, reports feeling much better and agrees to ambulate. SBA for sup<>sit, sit<>stand, and CGA for ~100 ft ambulation in hallway w/o AD. Pt refused FWW , but did furniture surf and became slightly SOB. Pt has FWW at home and agrees to use for longer distances for safety and energy conservation . Gait Assessment Gait Gait Assistance Required: Contact Guard Assist Distance (Feet) 100 Assistive Devices Assistive Device Gait Belt,Front Wheeled Walker Gait Deviations General Gait Pattern Decreased Stride Length, Decreased Feet Clearance Factors Limiting Gait Function Factors Limiting Gait Function Poor Balance Comments Gait Comments See mobility section for details. Stair Climbing Assessment Comments Stair Climbing Comments reports no stairs at home. PT-Balance Assessment Sitting Balance and Reactions Static Sitting Balance Ability Good Dynamic Sitting Balance Ability Good Standing Balance and Reactions Static Standing Balance Ability Good Dynamic Standing Balance Ability Fair Device Used None M5 PT-IP Objective Assessments Start: 10/28/22 15:42 Freq: NEEDED Status: Active Protocol: Document 10/28/22 15:43 ES (Rec: 10/28/22 16:11 ES [id number]) Orientation Orientation/Cognition Level of Alertness Alert Orientation Name,Age,Birthday,Month,Date, Year,Place,Situation Language Function Ability No Deficits Noted Safety Awareness Understands Safety Issues Memory Description No Deficits Noted Gross Range of Motion Upper Extremity ROM Assessment Within Functional Limits Lower Extremity ROM Assessment Within Functional Limits Strength Upper Extremity Strength Assessment Within Functional Limits Lower Extremity Strength Assessment Within Functional Limits M6 PT-IP Treatment Start: 10/28/22 15:42 Freq: NEEDED Status: Active Protocol: Document 10/29/22 10:02 KS (Rec: 10/29/22 11:19 KS [id number]) Physical Therapy Treatment Education Education Provided Safety Other Treatments Other Treatment Performed cont to recommend patient obtain some help at home to reduce caregiver burden with taking care of . M7 PT-IP Assessment and Plan Start: 10/28/22 15:42 Freq: NEEDED Status: Active Protocol: Document 10/29/22 10:02 KS (Rec: 10/29/22 11:19 KS [id number]) PT Summary Assessment and Plan Potential Rehabilitation Potential Excellent Summary Impairments Balance,Gait,Activity Tolerance Progress Towards Goals Progressing Toward Goals Assessment Summary Pt making progress w/ mobility and activity tolerance but remains limited by poor balance and quick approach to fatigue. Ambulated ~100 ft w/o AD but relied on furniture when in reach. Recommend FWW for home use, pts CATINA has obtained and pt agreeable. Goals Bed Mobility Goal Independent Transfer Goal Independent Gait Goal Independent Gait Distance 100 ft Other Goals Patient will be able to ascend /descend 2 stairs with CGA. Days to Meet Goals 3 Frequency of Treatment Frequency Of Treatment Once a Day Treatment Plan Physical Therapy Treatment Plan Bed Mobility Training,Transfer Training,Gait Training, Therapeutic Exercise,Discharge Planning Recommendations To Nursing Amount of Assist Needed Standby Assistance Discharge Recommendations PT Discharge Recommendations Home with Assistance Transportation Needs at Discharge Private Vehicle
--- NOTE | 2022-10-29 10:33 | OT.IPNOTE ---
Pt states feel back to normal as able to finally sleep and has been up to the bathroom independently per pt. Per nursing pt doing well. Able to talk to case management, nursing, and hospitalist, discharge pt from OT services.
--- NOTE | 2022-10-29 10:46 | OT.IPNOTE ---
If able to qualify, pt may benefit from home health to look at her overall environmental needs at home.
[2022-10-29] MEDS: INSULIN LISPRO 100 UNIT/ML 3ML VIAL SUBCUT (12:12)
--- NOTE | 2022-10-29 12:42 | CM.DPNOTE ---
DC Note Discharge expected today according to Dr Walters Met w/patient and her CATINA Flaca, reviewed DCP. Patient agreeable to ; explained that [facility] is the only agency [facility] serve [place], patient agreeable to RN/PT/OT/[employer] Strongly encouraged patient to consider counseling and to look in to resources for in home care.Provided listening support as patient and sister in law reviewed some of patient's past trauma and current struggles with spouse EFRAIN Colon database administration manager kindly agreed to send this referral to [facility] alerting them that patient anticipated to discharge home today Plan: Discharge home w/family to assist as needed, [facility], family to transport home JW
--- NOTE | 2022-10-29 15:51 | P.DS_ITS ---
History of Present Illness History of Present Illness Date Patient Seen: 10/28/22 Time Patient Seen: 02:10 Chief complaint: sepsis,resp failure, lactic acidosis Narrative: Mehreen Hewitt is a 58-year-old female with a past medical history of HTN, diastolic heart failure, mixed lipidemia, IDDM, depression w/ anxiety, GERD, urinary incontinence, Hx of PE, WON W/CPAP, and morbid obesity. Patient presented to the ED for acute onset @ around 3pm of nausea, vomiting (x2), diarrhea (2-3), shortness of breath, lightheaded, and vertigo. Patient had noticed increased swelling in her lower extremities yesterday and took 80 mg of Lasix in addition to her daily spironolactone 50 mg and 25 mg of chlorthalidone. In ED she was given additional 40mg of Lasix. The patient was found to be satting in the low 80s on room air in respiratory distress tachypneic, quickly e scalated from nasal cannula to eventually BiPAP 4L /satting 95%, dimer 517. Patient required CTA to rule out PE unfortunately [facility] machine was down so patient was sent over to [facility] for CTA, was initially placed on a heparin drip until PE could be ruled out. CTA negative for PE. On admit patient complains of dry mouth, headache, abdominal cramping with movement, dry mouth, anxiety, shortness of breath, and continued nausea. Denies chest pain, changes in vision, difficulty swallowing, speech impairment, weakness, numbness, tingling, difficulty with ambulation, recent falls, head injury, LOC, fever, body aches, chills, cough, recent exposure to illness, urinary incontinence/retention, dysuria, frequency, urgency, hematuria, bowel changes, constipation, incontinence, melena, rashes, recent changes to medication, illness, injury, or trauma. Patient has been caring for her w/severe uncontrolled diabetes has even lost an eye, for the past several years, which has been very stressful. The time of admit temp 98.1? 27/76, 68, 24, BiPAP 4L 97%. ABGs: PH 7.43, pCO2 30.3, PO2 76, HC03 20, TCO2 21, sat 96%, BE negative for, FiO2 32. WBC 13,neut 10,900, initial lactate 2.8, CK 204, BUN 36, creatinine 2.27, glucose 187, GFR 24, creatinine clearance 39. Sofa score: 5. 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 CXR negative, CTA negative for PE. Patient is admitted for sepsis without septic shock, acute hypoxic respiratory failure, lactic acidosis, GUERLINE on CKD. Discharge Providers Provider Date of admission: 10/28/22 01:54 Discharge Date: 10/29/22 Primary care physician: Nicole Ruth MD Consults: 10/28/22 02:02 Consult to Dietitian, Adult Routine Comment: Reason For Exam: BMI 36, DM Consult to Discharge Planning Routine Comment: Consult to Occupational Therapy Evaluate & Treat Comment: Physician Instructions: Evaluate and treat Consult to Physical Therapy Evaluate & Treat Comment: Physician Instructions: Evaluate and Treat 10/28/22 13:30 Consult to Home Health Routine Comment: Reason For Exam: home health services upon discharge Discharge provider: Vasquez Walters DO Summary Hospital Course Discharge Diagnosis: Panic attack causing acute dyspnea, acute, present on admission * patient extremely anxious, presented with tachycardia, diaphoresis and tachypnea. Most resembled a panic attack lasting 45 minutes prior arriving in ED. * alot of life stressors currently going on * increased home celexa to 40mg daily from 20 * dc with PRN ativan 0.5mg for anxiety and panic attacks Acute hypoxic respiratory failure, acute, present on admission. Resolved. * ED/Admit:98.1? 27/76, 68, 24, BiPAP 4L 97%.? * ABGs: PH 7.43, pCO2 30.3, PO2 76, HC03 20, TCO2 21, sat 96%, BE negative for, FiO2 32 * dimer 517.? * Patient required CTA to rule out PE unfortunately [facility] machine was down so patient was sent over to [facility] for CTA, was initially placed on a heparin drip until PE could be ruled out.? * CTA negative for PE.? CXR negative * weaned off O2 quickly Lactic acidemia, acute, present on admission, resolved * initial lactate 2.8 * trended to normal GUERLINE on CKD Stage G3b, acute on chronic, present on admission, improving * BUN 36, creatinine 2.27, glucose 187, GFR 24, creatinine clearance 39.? Sofa score: 5.? * Labs [id number]:? 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 * Avoid nephrotoxic medications * Sepsis fluid rehydration boluses * Hold spironolactone, chlorthalidone, Lasix * Patient's Bernal came out during transfer, [place] placed, bladder scans as needed Hyperglycemia in the setting IDDM, acute on chronic, with mixed hyperlipidemia, chronic, present on admission * Glucose 187 * Continue Lipitor * Patient admitted under diabetic protocol * Hold 70 30 insulin, will place on Lantus and sliding scale Hypertension, essential, chronic, present on admission * Holding chlorthalidone, spironolactone, Lasix * Continue carvedilol, losartan Diastolic heart failure, chronic, present on admission * No signs of heart failure exacerbation. * Last echo November 2017:? Diastolic heart failure with preserved ejection fra ction EF 60-65% * Holding chlorthalidone, spironolactone, Lasix-restarted on dc * Continue carvedilol, losartan Depression with anxiety, acute on chronic, present on admission * Continue citalopram, trazodone GERD, chronic, present on admission * Continue omeprazole? Obesity, moderate, acute on chronic, present on admission * As evidence by BMI 36.9 * the patient is at much higher risk for medical and surgical complications due to obesity as it relates to chronic illnesses:, and acute illness.? The patient's obesity increases the difficulty and complexity of medical and/or surgical interventions, management and increases the chances of poor outcome such as morbidity and mortality as well as impaired wound healing. WON, with CPAP, chronic, present on admission * Respiratory consult as needed Hospital Course: See above problem list. Time Spent with Patient Time spent: Greater than 30 minutes Exam Vital Signs (past 8 hours): - 10/29/22 08:00 10/29/22 12:00 Temperature 98.0 F 98.6 F Pulse Rate 60 57 L Respiratory Rate 16 16 Blood Pressure 131/63 109/62 Pulse Oximetry 94 96 Oxygen Flow Rate 0 0 Fraction of Inspired Oxygen 21 SaO2/FiO2 Ratio 461 Oxygen Delivery Method Room Air Oxygen Flow Rate 0 Narrative Exam Narrative: General: Patient is a well-developed, well-nourished, extremely anxious, tachypneic in no distress at this time. HEENT: Normocephalic, atraumatic, extraocular muscles intact, oral pharynx is clear and mucous membranes are moist. Neck is supple and symmetric, trachea is midline, no adenopathy, no thyroid enlargement, nontender, no masses palpated. Negative for JVD Chest: Normal AP diameter and contour without kyphoscoliosis, Equal chest rise without nasal flaring, or retractions. Patient initially was on BiPAP in the ED upon arrival on the floor was trialed on nasal cannula was able to taper patient down off O2 to rm air. Lungs: Auscultation of all lung anderson are clear without adventitious sounds, wheezes, rhonchi, or rales. Cardio: regular rate and rhythm without murmur, rubs, or gallops, no carotid bruit, no cardiac pulsations present. Abdomen: Soft nontender, negative for organomegaly, or masses. Bowel sounds are present in all 4 quadrants without guarding or rebound, no CVA tenderness. Musculoskeletal: Muscle strength and tone are equal, no deformity, crepitus, effusions, cyanosis, clubbing or edema present. Full range of motion intact ra dial and pedal pulses are normal. Skin: Warm dry and intact without rashes, ulcerations or petechiae. Neuro: Alert and orientated x3, moves all extremities, sensation to touch intact, no gross deficits noted of cranial nerves. Psych: Patient has a well-kept appearance, very aggitated, anxoius, mental status attitude thought context and judgment are appropriate for age. Objective Labs 10/29/22 04:08 10/29/22 04:08 Labs: Laboratory Results - last 24 hr 10/28/22 10/29/22 10/29/22 05:55 04:08 04:08 WBC 8.4 RBC 4.67 Hgb 15.1 Hct 43.9 MCV 94.2 MCH 32.3 MCHC 34.3 RDW 15.2 H Plt Count 227 Neut % (Auto) 57.3 Lymph % (Auto) 29.2 [place] % (Auto) 9.5 Eos % (Auto) 3.4 Baso % (Auto) 0.6 Neut # (Auto) 4800 Lymph # (Auto) 2500 [place] # (Auto) 800 Eos # (Auto) 300 Baso # (Auto) 100 Sodium 136 L Potassium 3.7 Chloride 102 Carbon Dioxide 23 BUN 28 H Creatinine 1.41 H Estimated GFR 42 L BUN/Creatinine Ratio 19.9 Glucose 126 H Hgb A1c (Ref Lab) 6.6 H Estim Average Glucose 143 Calcium 9.3 Total Bilirubin 0.6 AST 64 H ALT 99 H Alkaline Phosphatase 66 Total Protein 7.7 Albumin 4.2 Globulin 3.5 Albumin/Globulin Ratio 1.2 PFS Medical History Anxiety Cardiac arrhythmia Chronic major depressive disorder (03/25/11) Diabetes mellitus type 2, insulin dependent Diastolic heart failure (03/25/11) Diminished libido Essential hypertension (03/25/11) Lichen sclerosus of female genitalia Menopause present Mixed hyperlipidemia (03/25/11) Morbid obesity (10/22/15) Nonalcoholic fatty liver disease (03/18/16) Osteoarthritis, hand, primary localized Sleep apnea Urge incontinence Surgical History Anesthesia History of carpal tunnel repair History of foot surgery History of knee surgery History of neck surgery History of removal of cyst Status post appendectomy Status post appendectomy Status post cholecystectomy Status post hysterectomy Status post laparoscopic cholecystectomy Status post tubal ligation Tumor Social History marital status: household members: spouse Smoking Status: Never smoker alcohol intake: never substance use type: does not use Discharge Plan Discharge Plan Patient Disposition: Home Provider Discharge Comment: You were admitted for shortness of breath and a full workup did not find a cause for this. We think it was likely anxiety related so I have adjusted your medications and ordered an as-needed anxiety pill for you. Discharge orders & Medications Prescriptions: New citalopram 40 mg tablet 40 mg PO DAILY 30 Days Qty: 30 0RF lorazepam 0.5 mg Tablet 0.5 - 1 mg PO Q4HR PRN (Reason: Anxiety) Qty: 20 0RF Rx Instructions: may repeat with 2nd tablet if 1st ineffective Continued Glucose: Home Monitoring Kit IJ BID Qty: 1 0RF Test Strips - Freestyle INJ BID Qty: 200 3RF (DME) Syringes: Ultra Fine Insulin Syringe w/Needle See Rx Instructions .Route .MEDSUPPLY Qty: 90 3RF Dose Instruction: USE TO INJECT INSULIN ONCE DAILY SUBCUT QDAY; Rx Instructions: USE TO INJECT INSULIN subcut once daily (DME) Blood Glucose Test Strip See Dose Instructions .ROUTE .MEDSUPPLY Qty: 300 3RF Dose Instruction: As directed Rx Instructions: Use As directed three times daily to test blood sugars (DME) blood-glucose meter Kit See Rx Instructions .ROUTE .MEDSUPPLY Qty: 1 0RF Rx Instructions: As directed to check blood sugar three times daily losartan [Cozaar] 100 mg tablet 100 mg PO QDAY Qty: 90 3RF Lantus U-100 Insulin 100 unit/mL solution 85 unit SUBCUT BEDTIME Qty: 80 3RF carvedilol [Coreg] 25 mg tablet 37.5 mg PO BID Qty: 405 3RF atorvastatin 40 mg tablet 40 mg PO HS Qty: 90 3RF spironolactone 50 mg tablet 50 mg PO BID Qty: 180 3RF furosemide 40 mg tablet 40 mg PO QDAYP PRN (Reason: edema) Qty: 90 3RF omeprazole 20 mg capsule,delayed release(DR/EC) 20 mg PO BID Qty: 180 0RF trazodone 50 mg tablet See Rx Instructions .ROUTE .COMPLEX Qty: 270 0RF Dose Instruction: Take 1-3 tablets (50-150 mg) by mouth at bedtime as needed for sleep Rx Instructions: Take 1-3 tablets (50-150 mg) by mouth at bedtime as needed for sleep. Appt please prior to more fills chlorthalidone 25 mg tablet 25 mg PO QDAY Qty: 90 0RF testosterone cypionate 200 mg/mL oil 100 mg IM Q4W Qty: 1 5RF Rx Instructions: Bring vial to appointment with procedure nurse to have 100mg injected intramuscular every 4 weeks. clobetasol 0.05 % cream 1 applic TOP BEDTIME Qty: 45 3RF Rx Instructions: Apply to area of LSA every night at bedtime. CMP Estriol Vaginal Cream 0.2% 1 g vaginal BEDTIME Qty: 30 1RF Rx Instructions: Alternate with Clobetasol [facility] testosterone cypionate [Depo-Testosterone] 200 mg/mL oil 150 mg IM Q4W Qty: 1 5RF cholecalciferol (vitamin D3) 5,000 unit capsule 5,000 unit PO DAILY ascorbic acid (vitamin C) 1,000 mg tablet 1 gram PO DAILY triamcinolone acetonide 0.1 % cream See Rx Instructions TOP BID Qty: 30 0RF Rx Instructions: 1 mg topically bid TOP BID; ketoconazole 2 % cream See Rx Instructions TOP BID Qty: 30 0RF Dose Instruction: 1mg toppically bid TOP BID; Rx Instructions: 1mg toppically bid TOP BID; oxybutynin chloride 10 mg tablet extended release 24hr 10 mg PO DAILY Qty: 90 3RF estradiol 0.01 % (0.1 mg/gram) cream 1 g vaginal 3XW Qty: 42.5 0RF Discontinued citalopram 20 mg tablet See Rx Instructions .ROUTE .COMPLEX Qty: 90 0RF Dose Instruction: TAKE 1 TABLET EVERY DAY Rx Instructions: TAKE 1 TABLET EVERY DAY. Please call for appointment prior to more fills. 08/08/20 Follow up/Referrals: Nicole Ruth MD [Primary Care Provider] - Visit Report/Discharge Packet Stand Alone Forms: Patient Portal/API, Stroke Signs & Symptoms Discharge Data Primary Care Provider: Nicole Ruth Discharges patient from system. Discharge Date/Time: 10/29/22 13:35
== END 2022-10-29 13:35 | disposition home health service (06) | DRG 189 ==
LOC: ED 10-28 01:54 → ICU 10-28 03:18 → AC 10-28 11:59 → ICU 10-28 11:59
PROVIDERS: Emergency Medicine; Admitting Provider Nurse Practitioner Family; Emergency Provider Emergency Medicine; Family Provider Family Medicine; PCP Internal Medicine; Visit Provider Nurse Practitioner Family
DX: J96.01 Acute respiratory failure with hypoxia (principal); N17.9 Acute kidney failure, unspecified; E87.20 Acidosis, unspecified; I50.32 Chronic diastolic (congestive) heart failure; I13.0 Hypertensive heart and chronic kidney disease with heart failure and stage 1 through stage 4 chronic kidney disease, or unspecified chronic kidney disease; N18.32 Chronic kidney disease, stage 3b; E11.22 Type 2 diabetes mellitus with diabetic chronic kidney disease; E11.65 Type 2 diabetes mellitus with hyperglycemia; E78.2 Mixed hyperlipidemia; F32.A Depression, unspecified; K21.9 Gastro-esophageal reflux disease without esophagitis; E66.9 Obesity, unspecified; G47.33 Obstructive sleep apnea (adult) (pediatric); F41.0 Panic disorder [episodic paroxysmal anxiety]; Z68.36 Body mass index [BMI] 36.0-36.9, adult; Z79.4 Long term (current) use of insulin
CPT/HCPCS: 36415; 36600; 71045; 80053; 81003; 82550; 82805; 82962; 83036; 83605; 83690; 83735; 83880; 84145; 84484; 85025; 85379; 85610; 85730; 87086; 87633; 87635; 87797; 93005; 93010; 93970; 94660; 96365; 96366; 96375; 96376; 97116; 97161; 99285; 99291; 99292; C9803; J0696; J1644; J1650; J1815; J1940; J2270; J2405

== ENCOUNTER → 2023-12-10 11:44 | Outpatient (CLI) | payer OTHER, SELFPAY ==
[2022-10-28 00:04] VITALS: PULSE 74; RESP 25; O2SAT 99
[2022-10-28 02:10] VITALS: BMI 36.8
[2023-12-13 12:08] LABS: Candida species Positive (Negative); Gardnerella vaginalis Negative (Negative); Trichomoas vaginalis Negative (Negative)
== END ==
PROVIDERS: Family Provider Family Medicine; PCP Internal Medicine; Visit Provider Obstetrics & Gynecology
DX: N89.8 Other specified noninflammatory disorders of vagina (principal)
CPT/HCPCS: 87480; 87510; 87660